=== PATIENT | female | born 1995 | race Caucasian/White ===

== ENCOUNTER → 2016-12-13 | Outpatient (CLI) | payer BC ==
[~2016-12-13] MED LIST: AMX500CIP PO; CPR500T PO; DEPO SHOT; DEPO-SHOT IM; FAMO20TA5 PO; LEVO500T69 PO; ONDA-42 SL; PREN-115 PO; SULF1TAB38 PO
--- NOTE | 2016-12-13 09:45 | Diagnostic Imaging Report ---
PROCEDURE: US Thyroid. TECHNIQUE: Multiple real-time grayscale images were obtained of the thyroid in various projections. INDICATION: Multiple thyroid nodules. FINDINGS: The right thyroid lobe is 4.6 x 1.6 x 1.5 cm. The left lobe is 4.4 x 1.2 x 1.6 cm. There is a solid 7 mm nodule in the mid to lower aspect of the left thyroid lobe. This is minimally more prominent compared to 12/12/2015. Another nodule measuring 3 mm in the inferior aspect of the left thyroid lobe and a 3 mm nodule in the mid right lobe are again noted. IMPRESSION: There is a 7 mm solid nodule in the mid to lower aspect of the left thyroid lobe which is minimally more prominent compared to 12/21/2015. Two other smaller nodules are seen. These might relate to a mild multinodular goiter. Dictated by: Dictated on workstation # [id number]
== END ==
LOC: RAD 08:07
PROVIDERS: ATTEND Nurse Practitioner Family
DX: E04.2 Nontoxic multinodular goiter (principal)
CPT/HCPCS: 76536

== ENCOUNTER → 2017-08-23 | Outpatient (CLI) | payer BC ==
--- NOTE | 2017-08-23 09:11 | Diagnostic Imaging Report ---
INDICATION: Epigastric abdominal pain TECHNIQUE: Multiple real-time mares scale sonographic images of the abdomen. CORRELATION STUDY: None FINDINGS: LIVER: Normal echotexture within the visualized portions of the liver. There is normal, hepatopedal direction of flow within the main portal vein. Liver length at 15 cm. GALLBLADDER: No shadowing gallstones or pericholecystic fluid. COMMON BILE DUCT: Obscured by overlying bowel gas, but no overt bile duct dilatation suggested. PANCREAS: Limited in visualization. The visualized portions appearing unremarkable. SPLEEN: Unremarkable. ABDOMINAL AORTA: Unremarkable. INFERIOR VENA CAVA: Limited in visualization. RIGHT KIDNEY: 9.4 cm. Unremarkable. LEFT KIDNEY: 9.2 cm. Unremarkable. OTHER: None. IMPRESSION: 1. Unremarkable-appearing abdominal ultrasound evaluation. Biliary tree however, is not well visualized, obscured by bowel gas. Dictated by: Dictated on workstation # [id number]
== END ==
LOC: RAD 08:45
PROVIDERS: ATTEND Nurse Practitioner Family
DX: R10.13 Epigastric pain (principal)
CPT/HCPCS: 76700

== ENCOUNTER 2019-06-05 10:55 | Outpatient (CLI) | payer BC ==
[~2019-06-05] VITALS: Ht 160 cm; Wt 69.9 kg
== END 2019-06-05 11:03 | disposition home or self-care (01) ==
LOC: PREOP 10:55
PROVIDERS: ATTEND Obstetrics & Gynecology
DX: Z01.818 Encounter for other preprocedural examination (principal)

== ENCOUNTER 2019-06-09 09:37 | Day surgery (SDC) | payer BC ==
[2019-06-09] VITALS (10 sets, daily range): BP systolic 94–126; BP diastolic 58–70
[~2019-06-09] VITALS: Ht 160 cm; Wt 69.9 kg
[2019-06-09 10:30] LABS: BASOPHILS % (AUTO) 1 % (0-10); EOSINOPHILS % (AUTO) 1 % (0-10); HEMATOCRIT 41 % (35-52); HEMOGLOBIN 13.3 G/DL (11.5-16.0); LYMPHOCYTES # (AUTO) 1.5 X 10^3 (1.0-4.0); LYMPHOCYTES % (AUTO) 34 % (12-44); MEAN CORPUSCULAR HEMOGLOBIN 28 PG (25-34); MEAN CORPUSCULAR HGB CONC 32 G/DL (32-36); MEAN CORPUSCULAR VOLUME 88 FL (80-99); MEAN PLATELET VOLUME 11.2 FL (7.4-10.4); MONOCYTES # (AUTO) 0.3 X 10^3 (0.0-1.0); MONOCYTES % (AUTO) 7 % (0-12); NEUTROPHILS # (AUTO) 2.6 X 10^3 (1.8-7.8); NEUTROPHILS % (AUTO) 57 % (42-75); PLATELET COUNT 177 10^3/uL (130-400); RED CELL DISTRIBUTION WIDTH 12.6 % (10.0-14.5); WHITE BLOOD COUNT 4.5 10^3/uL (4.3-11.0)
--- NOTE | 2019-06-09 10:38 | Progress Note-Pre Operative ---
Pre-Operative Progress Note H&P Reviewed The H&P was reviewed, patient examined and no changes noted. Date Seen by Provider: Jun 09, 2019 Time Seen by Provider: 10:38 Date H&P Reviewed: Jun 09, 2019 Time H&P Reviewed: 10:38 Pre-Operative Diagnosis: IUD retained WANDA CABRERA DO Jun 09, 2019 10:38
[2019-06-09] MEDS ORDERED: D5 LR IV SOLUTION 1,000 ML IV SCH (10:39)
[2019-06-09] MEDS ORDERED: ONDANSETRON 4 MG/2 ML (SDV) Z0FRAN IVP PRN ×2 (10:45→12:30)
[2019-06-09] MEDS ORDERED: KETOROLAC 30 MG/ML VIAL IVP ONE (10:45)
[2019-06-09] MEDS ORDERED: LACTATED RINGERS 1,000 ML IV PRN (10:47)
[2019-06-09] MEDS ORDERED: BUPIVACAINE 0.25% 30 ML (SENSORCAINE) VIAL ONE (10:54)
[2019-06-09] MEDS ORDERED: MIDAZOLAM 2 MG/2 ML (VERSED) VIAL ONE (11:32)
[2019-06-09] MEDS ORDERED: fentaNYL INJECTION 100 MCG/2 ML AMP ONE (11:32)
[2019-06-09] MEDS ORDERED: LIDOCAINE PF 2% 5 ML (XYLOCAINE) VIAL ONE (12:03)
[2019-06-09] MEDS ORDERED: ONDANSETRON 4 MG/2 ML (SDV) Z0FRAN ONE (12:03)
[2019-06-09] MEDS ORDERED: SEVOFLURANE (ULTANE) 15 ML INHAL SOLN ONE (12:03)
[2019-06-09] MEDS ORDERED: DEXAMETHASONE 10 MG/ML (DECADRON) 1 ML VIAL ONE (12:03)
[2019-06-09] MEDS ORDERED: proPOfol 200 MG/20 ML (DIPRIVAN) VIAL IV ONE (12:03)
[2019-06-09] MEDS ORDERED: KETOROLAC 30 MG/ML VIAL ONE (12:09)
[2019-06-09] MEDS ORDERED: HYDROmorphone 2 MG/ML VIAL (DILAUDID) IV ONE (12:30)
[2019-06-09] MEDS ORDERED: MEPERIDINE (DEMEROL) INJ 50 MG/ML IVP ONE (12:30)
[2019-06-09] MEDS ORDERED: morphine INJ 10 MG/ML 1ML (SYR OR VIAL) IVP ONE (12:30)
--- NOTE | 2019-06-09 15:00 | NUR ---
REPORTS INTERMITTENT PELVIC CRAMPY DISCOMFORT RATED 1-2 THROUGHOUT RECOVERY. TAKING PO FLUIDS WELL, ALERT, ONLY SCANT AMOUNT OF BLOODY DRAINAGE ON V-PAD. STATE SHE IS READY FOR DISMISSAL.
--- NOTE | 2019-06-09 15:30 | Anesthesia-General Post-Op ---
General Patient Condition Mental Status/LOC: Same as Preop Cardiovascular: Satisfactory Nausea/Vomiting: Absent Respiratory: Satisfactory Pain: Controlled Complications: Absent Post Op Complications Complications None Follow Up Care/Instructions Patient Instructions None needed. Anesthesia/Patient Condition Patient Condition Patient is doing well, no complaints, stable vital signs, no apparent adverse anesthesia problems. No complications reported per nursing. DAVE MORTON CRNA Jun 09, 2019 15:30
--- NOTE | 2019-06-09 18:01 | OPERATIVE REPORT ---
DATE OF SERVICE: 06/09/2019 PREOPERATIVE DIAGNOSIS: Retained IUD. POSTOPERATIVE DIAGNOSIS: Retained IUD. PROCEDURE: Hysteroscopic removal of IUD. SURGEON: Wanda Cabrera DO ANESTHESIA: General endotracheal. ESTIMATED BLOOD LOSS: Minimal. URINE OUTPUT: 50 mL, clear drained at the end of the procedure. FLUIDS: 600 mL of lactated Ringer's solution. FINDINGS: An embedded IUD at the uterine fundus with no evidence of puncture of the myometrium. SPECIMEN SENT: None. INDICATION FOR PROCEDURE: This 24-year-old female is a patient, who came in for annual well-woman visit, reported some pain with intercourse, but otherwise was asymptomatic with having periods that were very light, monthly, otherwise no complications. She was requesting IUD removal for the possibility of in the next year to two years. We attempted IUD removal in the office, but was unsuccessful and the patient became quite uncomfortable. I discussed with the patient doing this under sedation or general anesthesia. Risk of anesthesia and sedation was discussed with the patient in detail. I discussed; however, we may need to use hysteroscopic guidance in order for removal. She was okay with that. After everything was discussed, consent was obtained in the preoperative area and the patient was taken to the operating room. OPERATIVE REPORT IN DETAIL: Once in the operating room, general anesthesia was found to be adequate. She was placed in dorsal lithotomy position, prepped and draped in normal sterile fashion. A timeout was performed. Weighted speculum was inserted in the patient's vagina. A right angle retractor was used to visualize the cervix. Paracervical block was then performed at 3 and 9 o'clock positions using 0.25% Marcaine, 5 mL were injected at each site. Care was taken to aspirate before injecting. I then gently sound the uterine cavity, depth was found to be 8 cm. I then gently dilated the cervix using Mayra dilators to a maximum dilatation of approximately 8 mm. I then attempted to blindly remove the IUD using a long curved Adwoa. I was unable to do so. I then advanced a hysteroscope using normal saline as my visual medium into the uterine endometrium, at which point, I am able to identify the IUD visually. I grasped that using hysteroscopic grasper and I am able to remove it without difficulty. There was no active bleeding noted from the uterus after this was performed. All other instruments were removed from the patient's vagina. There was a small amount of bleeding noted from the cervix and made hemostatic using silver nitrate. Otherwise, the patient tolerated the procedure well and was taken to recovery area in stable condition. Lap and sponge counts were correct at the end of the procedure. Instrument count was correct as well. Job ID: [id number] DocumentID: [id number] Dictated Date: 06/09/2019 12:36:04 Nps Date: 06/09/2019 18:00:40 Dictated By: WANDA CABRERA DO
== END 2019-06-09 15:00 | disposition home or self-care (01) ==
LOC: SDC 09:37
PROVIDERS: ATTEND Obstetrics & Gynecology
DX: T83.84XA Pain due to genitourinary prosthetic devices, implants and grafts, initial encounter (principal); Z30.432 Encounter for removal of intrauterine contraceptive device; G43.909 Migraine, unspecified, not intractable, without status migrainosus; Z88.2 Allergy status to sulfonamides; Z79.899 Other long term (current) drug therapy; Z80.3 Family history of malignant neoplasm of breast; Z82.49 Family history of ischemic heart disease and other diseases of the circulatory system
CPT/HCPCS: 36415; 84703; 85025; 86850; 86900; 86901; 87081; 94664

== ENCOUNTER 2019-11-03 08:00 | Emergency (ER) | payer BC ==
[~2019-11-03] VITALS: Ht 160 cm; Wt 70.3 kg
[2019-11-03] MEDS ORDERED: LACTATED RINGERS 1,000 ML IV ONE (08:11)
[2019-11-03 08:31] LABS: BASOPHILS % (AUTO) 0 % (0-10); EOSINOPHILS # (AUTO) 0.1 10^3/uL (0.0-0.3); EOSINOPHILS % (AUTO) 1 % (0-10); HEMATOCRIT 43 % (35-52); HEMOGLOBIN 13.8 G/DL (11.5-16.0); LYMPHOCYTES # (AUTO) 1.9 X 10^3 (1.0-4.0); LYMPHOCYTES % (AUTO) 31 % (12-44); MEAN CORPUSCULAR HEMOGLOBIN 28 PG (25-34); MEAN CORPUSCULAR HGB CONC 32 G/DL (32-36); MEAN CORPUSCULAR VOLUME 87 FL (80-99); MEAN PLATELET VOLUME 11.7 FL (7.4-10.4); MONOCYTES # (AUTO) 0.4 X 10^3 (0.0-1.0); MONOCYTES % (AUTO) 6 % (0-12); NEUTROPHILS # (AUTO) 3.7 X 10^3 (1.8-7.8); NEUTROPHILS % (AUTO) 62 % (42-75); PLATELET COUNT 169 10^3/uL (130-400); RED CELL DISTRIBUTION WIDTH 13.5 % (10.0-14.5)
--- NOTE | 2019-11-03 08:35 | ED Abdominal Pain ---
General Chief Complaint: Abdominal/GI Problems Stated Complaint: LOWER ABD PAIN Source of Information: Patient History of Present Illness Date Seen by Provider: Nov 03, 2019 Time Seen by Provider: 08:04 Initial Comments PT ARRIVES VIA POV FROM HOME C/O DIFFUSE LOWER ABDOMINAL PAIN, RADIATING TO RIGHT FLANK--SUDDEN ONSET AT 0830 YESTERDAY MORNING PAIN WAXES AND WANES IN INTENSITY, BUT DOES NOT GO AWAY WHEN PAIN IS SEVERE, IT RADIATES TO RUQ AND RIGHT BREAST AND SHOULDER. NOTHING WORSENS OR IMPROVES PAIN, BUT HAS NOT TAKEN ANYTHING FOR PAIN + NAUSEA, NO VOMITING. HAD A NORMAL BM SHORTLY AFTER THE PAIN BEGAN NO FEVER DOES HAVE ALOT OF PAIN ON URINATION LMP 1 WEEK AGO. NORMAL. ON OCP'S. HAD MIRENA IUD REMOVED 4 MONTHS AGO. SEEN AT [facility] YESTERDAY AFTERNOON AROUND 1600, HAD UA DONE AND WAS REPORTEDLY "CLEAR". NO ADDITIONAL TESTS, AND NO RX GIVEN. HAS HAD AN OVARIAN CYST RUPTURE IN THE PAST, BUT THIS IS NOT THE SAME. PCP: [facility] MEDICAID ELIGIBILITY SPECIALIST: DR. CABRERA Allergies and Home Medications Allergies Coded Allergies: Sulfa (Sulfonamide Antibiotics) (Unverified Adverse Reaction, Intermediate, rash, throat swelling, 12/31/12) Home Medications No Active Prescriptions or Reported Meds Review of Systems Review of Systems Constitutional: no symptoms reported; No chills, No diaphoresis, No fever Respiratory: No Symptoms Reported Cardiovascular: No Symptoms Reported Gastrointestinal: See HPI, Abdominal Pain; Denies Constipated, Denies Diarrhea; Nausea; Denies Vomiting Genitourinary: See HPI, Flank Pain, Pain Musculoskeletal: see HPI, back pain Skin: no symptoms reported Psychiatric/Neurological: No Symptoms Reported Endocrine: No Symptoms Reported Hematologic/Lymphatic: No Symptoms Reported Past Bfccmit-Kbryvy-Paofdm Hx Past Med/Social Hx: Reviewed and Corrections made Patient Social History Alcohol Use: Occasionally Uses Recreational Drug Use: No Smoking Status: Never a Smoker Recent Foreign Travel: No Contact w/Someone Who Travel: No Recent Hopitalizations: No Immunizations Up To Date Tetanus Booster (TDap): Unknown Date of Influenza Vaccine: Jul 08, 2013 Seasonal Allergies Seasonal Allergies: No Past Medical History Surgeries: Yes (WISDOM TEETH REMOVED; X 1) Section Respiratory: No Currently Using CPAP: No Currently Using BIPAP: No Cardiac: No Neurological: Yes Headaches /Migraines Reproductive Disorders: Yes (HAD HPV VACCINE SERIES IN 2007) Female Reproductive Disorders: Ovarian Cyst Sexually Transmitted Disease: No Genitourinary: No Gastrointestinal: No Musculoskeletal: No Endocrine: No HEENT: No Cancer: No Psychosocial: No Integumentary: No Blood Disorders: No Family Medical History No Pertinent Family Hx Physical Exam Vital Signs Vital Signs - First Documented 11/03/19 08:05 Temp 36.7 Pulse 97 Resp 20 B/P (MAP) 121/58 (79) Pulse Ox 100 O2 Delivery Room Air Capillary Refill : Height/Weight/BMI Height: 5'3.00" Weight: 154lbs. 0.0oz. 69.494273sp; 27.30 BMI Method:Stated General Appearance: WD/WN, no apparent distress, other (WALKS UPRIGHT AND MOVES WITHOUT DIFFICULTY. DOES NOT APPEAR TO BE IN ANY DISCOMFORT OR DISTRESS) Respiratory: normal breath sounds, no respiratory distress, no accessory muscle use Cardiovascular: regular rate, rhythm, no murmur Gastrointestinal: normal bowel sounds, soft, no organomegaly, no pulsatile mass; No distended, No guarding, No rebound; tenderness (DIFFUSE ABDOMINAL TENDERNSS, MORE TENDER ON RIGHT, WITH MOST TENDERNESS IN RLQ ); No hernia, No mass Extremities: normal inspection, normal capillary refill Back: normal inspection, no CVA tenderness Neurologic/Psychiatric: rn cardiac II-XII nml as tested, no motor/sensory deficits, alert, normal mood/affect, oriented x 3 Skin: normal color, warm/dry; No rash Progress/Results/Core Measures Results/Orders Lab Results Laboratory Tests Test 11/03/19 08:19 11/03/19 08:24 Range/Units Urine Color YELLOW Urine Clarity CLEAR Urine pH 5.5 5-9 Urine Specific Nathrop 1.025 H 1.016-1.022 Urine Protein NEGATIVE NEGATIVE Urine Glucose (UA) NEGATIVE NEGATIVE Urine Ketones NEGATIVE NEGATIVE Urine Nitrite NEGATIVE NEGATIVE Urine Bilirubin NEGATIVE NEGATIVE Urine Urobilinogen 0.2 < = 1.0 MG/DL Urine Leukocyte Esterase TRACE H NEGATIVE Urine RBC (Auto) NEGATIVE NEGATIVE Urine RBC NONE /HPF Urine WBC 10-25 H /HPF Urine Squamous Epithelial Cells 10-25 H /HPF Urine Crystals NONE /LPF Urine Bacteria MODERATE H /HPF Urine Casts NONE /LPF Urine Mucus NEGATIVE /LPF Urine Culture Indicated YES White Blood Count 6.0 4.3-11.0 10^3/uL Red Blood Count 4.93 4.35-5.85 10^6/uL Hemoglobin 13.8 11.5-16.0 G/DL Hematocrit 43 35-52 % Mean Corpuscular Volume 87 80-99 FL Mean Corpuscular Hemoglobin 28 25-34 PG Mean Corpuscular Hemoglobin Concent 32 32-36 G/DL Red Cell Distribution Width 13.5 10.0-14.5 % Platelet Count 169 130-400 10^3/uL Mean Platelet Volume 11.7 H 7.4-10.4 FL Neutrophils (%) (Auto) 62 42-75 % Lymphocytes (%) (Auto) 31 12-44 % Monocytes (%) (Auto) 6 0-12 % Eosinophils (%) (Auto) 1 0-10 % Basophils (%) (Auto) 0 0-10 % Neutrophils # (Auto) 3.7 1.8-7.8 X 10^3 Lymphocytes # (Auto) 1.9 1.0-4.0 X 10^3 Monocytes # (Auto) 0.4 0.0-1.0 X 10^3 Eosinophils # (Auto) 0.1 0.0-0.3 10^3/uL Basophils # (Auto) 0.0 0.0-0.1 10^3/uL Sodium Level 139 135-145 MMOL/L Potassium Level 3.8 3.6-5.0 MMOL/L Chloride Level 107 98-107 MMOL/L Carbon Dioxide Level 24 21-32 MMOL/L Anion Gap 8 5-14 MMOL/L Blood Urea Nitrogen 11 7-18 MG/DL Creatinine 0.79 0.60-1.30 MG/DL Estimat Glomerular Filtration Rate > 60 BUN/Creatinine Ratio 14 Glucose Level 88 70-105 MG/DL Calcium Level 9.4 8.5-10.1 MG/DL Corrected Calcium 9.1 8.5-10.1 MG/DL Total Bilirubin 0.6 0.1-1.0 MG/DL Aspartate Amino Transf (AST/SGOT) 12 5-34 U/L Alanine Aminotransferase (ALT/SGPT) 16 0-55 U/L Alkaline Phosphatase 52 40-136 U/L Total Protein 7.4 6.4-8.2 GM/DL Albumin 4.4 3.2-4.5 GM/DL Amylase Level 53 25-125 U/L Lipase 15 8-78 U/L My Orders Orders - VANNESA CAIN DO Ua Culture If Indicated (11/03/19 08:02) Urine Bedside (11/03/19 08:02) Ed Iv/Invasive Line Start (11/03/19 08:11) Amylase (11/03/19 08:11) Cbc With Automated Diff (11/03/19 08:11) Comprehensive Metabolic Panel (11/03/19 08:11) Lipase (11/03/19 08:11) Ed Iv/Invasive Line Start (11/03/19 08:11) Lactated Ringers (Lr 1000 Ml Iv Solution (11/03/19 08:11) Urine Culture (11/03/19 08:19) Acute Abd Series (11/03/19 08:55) Ketorolac Injection (Toradol Injection) (11/03/19 08:55) Ceftriaxone For Iv Use (Rocephin For I (11/03/19 09:00) Ct Abd/Pelv W (Appendicitis) (11/03/19 08:58) Iohexol Injection (Omnipaque 350 Mg/Ml 1 (11/03/19 09:15) Received Contrast (Hold Metformin- Contr (11/03/19 09:15) Ns (Ivpb) (Sodium Chloride 0.9% Ivpb Bag (11/03/19 09:15) Medications Given in ED Current Medications Medications Dose Ordered Sig/Patricia Route Start Time Stop Time Status Last Admin Dose Admin Ceftriaxone Sodium 1000 mg/ Sterile Water 10 ml @ 200 mls/hr ONCE ONCE IV 11/03/19 09:00 11/03/19 09:02 DC 11/03/19 09:39 200 MLS/HR Iohexol 100 ml ONCE ONCE IV 11/03/19 09:15 11/03/19 09:16 DC 11/03/19 09:23 89 ML Lactated Ringer's 1,000 ml @ 0 mls/hr Q0M ONCE IV 11/03/19 08:11 11/03/19 08:12 DC 11/03/19 08:28 1,000 MLS/HR Sodium Chloride 100 ml ONCE ONCE IV 11/03/19 09:15 11/03/19 09:16 DC 11/03/19 09:23 80 ML Vital Signs/I&O 11/03/19 08:05 Temp 36.7 Pulse 97 Resp 20 B/P (MAP) 121/58 (79) Pulse Ox 100 O2 Delivery Room Air Progress Progress Note : Progress Note PAIN RELIEVED WITH TORADOL UNEVENTFUL ER STAY Departure Impression Primary Impression: Urinary tract infection Additional Impression: RUPTURED RIGHT OVARIAN CYST Disposition: HOME, SELF-CARE Condition: Improved Departure-Patient Inst. Referrals: [facility] (PCP) Primary Care Physician WANDA CABRERA DO Patient Instructions: Urinary Tract Infection, Adult (DC), Ovarian Cyst (DC) Add. Discharge Instructions: LOTS OF CLEAR LIQUIDS TYLENOL 1 GRAM / MOTRIN 800 MG 4 TIMES A DAY FOR PAIN OR FEVER [facility]-3 DAYS FOR FURTHER CARE, RETURN TO ER IF SYMPTOMS WORSEN All discharge instructions reviewed with patient and/or family. Voiced understanding. Scripts Tramadol HCl (Ultram) 50 Mg Tablet 50 MG PO Q4H PRN for PAIN-MODERATE for 3 Days, TAB Prov: VANNESA CAIN DO 11/03/19 Nitrofurantoin Monohyd/M-Cryst (Macrobid 100 mg Capsule) 100 Mg Capsule 100 MG PO BID, #20 CAP Prov: VANNESA CAIN DO 11/03/19 VANNESA CAIN DO Nov 03, 2019 08:35
[2019-11-03 08:41] LABS: BILIRUBIN,URINE NEGATIVE (NEGATIVE); CLARITY,URINE CLEAR; COLOR,URINE YELLOW; GLUCOSE, URINE (UA) NEGATIVE (NEGATIVE); KETONES,URINE NEGATIVE (NEGATIVE); LEUKOCYTE ESTERASE ,URINE TRACE (NEGATIVE); NITRITE,URINE NEGATIVE (NEGATIVE); PH,URINE 5.5 (5-9); PROTEIN,URINE NEGATIVE (NEGATIVE)
[2019-11-03 08:53] LABS: ALANINE AMINOTRANSFERASE 16 U/L (0-55); ALBUMIN 4.4 GM/DL (3.2-4.5); ALKALINE PHOSPHATASE 52 U/L (40-136); AMYLASE 53 U/L (25-125); BILIRUBIN,TOTAL 0.6 MG/DL (0.1-1.0); BUN/CREATININE RATIO 14; CALCIUM 9.4 MG/DL (8.5-10.1); CARBON DIOXIDE 24 MMOL/L (21-32); CHLORIDE 107 MMOL/L (98-107); CREATININE SERUM 0.79 MG/DL (0.60-1.30); GFR ESTIMATED > 60; GLUCOSE 88 MG/DL (70-105); LIPASE 15 U/L (8-78); POTASSIUM 3.8 MMOL/L (3.6-5.0); SODIUM 139 MMOL/L (135-145); TOTAL PROTEIN 7.4 GM/DL (6.4-8.2)
[2019-11-03 08:53] LABS: BACTERIA,URINE MODERATE /HPF
[2019-11-03] MEDS ORDERED: KETOROLAC 30 MG/ML VIAL IVP STA (08:55)
[2019-11-03] MEDS ORDERED: cefTRIAXone FOR IV USE 1,000 MG in WATER (STERILE) FOR INJECTION 10 ML IV ONE (09:00)
[2019-11-03] MEDS ORDERED: IOHEXOL 350 MG/ML 100 ML (OMNIPAQUE 350) VIAL IV ONE (09:15)
[2019-11-03] MEDS ORDERED: NS 100 ML (IVPB) BAG IV ONE (09:15)
[2019-11-03] MEDS ORDERED: HOLD METFORMIN - RECEIVED CONTRAST 20 ML VIAL IV SCH (09:15)
--- NOTE | 2019-11-03 09:31 | Diagnostic Imaging Report ---
PATIENT HISTORY: Lower abdominal pain. TECHNIQUE: Three views of the chest and abdomen were obtained. COMPARISON: 07/18/2014. FINDINGS: The lung volumes are normal. No focal consolidation is seen. No large pleural effusion or pneumothorax is seen. The cardiomediastinal silhouette is normal in size and contour. No acute osseous abnormality is seen. No evidence of bowel obstruction or large collections of free intraperitoneal air. Moderate amount of stool is seen in the colon. Phleboliths are noted in the pelvis. No acute osseous abnormalities are seen in the abdomen and pelvis. IMPRESSION: 1. No acute pleuroparenchymal process. 2. No evidence of bowel obstruction or large collections of free intraperitoneal air. 3. Moderate amount of stool in the colon, which can be seen with constipation. Dictated by: Dictated on workstation # [id number]
--- NOTE | 2019-11-03 09:53 | Diagnostic Imaging Report ---
PROCEDURE: CT abdomen and pelvis with contrast, rule out appendicitis. TECHNIQUE: Multiple contiguous axial images were obtained through the abdomen and pelvis after the administration of intravenous contrast. All CT scans use one or more of the following dose optimizing techniques: automated exposure control, MA and/or KvP adjustment based on a patient size and exam type, or iterative reconstruction. INDICATION: Right lower quadrant pain, nausea FINDINGS: The air-containing appendix well visualized and normal. There is a 6 mm nonobstructing left renal mid pole calculus. No radiodense ureteral stone. No hydroureteronephrosis. The urinary bladder unremarkable. There is pelvic free fluid in the cul-de-sac as well as a likely complex right adnexal cystic mass measuring 3.5 x 2.7 cm. Pelvic free fluid itself is somewhat dense and this may reflect a partially ruptured hemorrhagic cyst. Pelvic ultrasound recommended. The left adnexa unremarkable. The urinary bladder unremarkable. There is no bowel obstruction. Liver, spleen, adrenals, pancreas and gallbladder all negative. The aortoiliac and mesenteric vessels patent and nonaneurysmal. IMPRESSION: Right adnexal cyst 3.5 cm show some heterogeneity of its density and there is likely small-volume complex pelvic free fluid at the cul-de-sac. Findings raise the question of a partially ruptured hemorrhagic cyst without contrast extravasation. Consider a pelvic ultrasound as further evaluation. Nonobstructing nephrolithiasis with normal appendix. Dictated by: Dictated on workstation # [id number]
[2019-11-03] MEDS ORDERED: TRAM-42 PO (10:05)
[2019-11-03] MEDS ORDERED: NITR-65 PO (10:05)
[2019-11-03 10:38] VITALS: BP 118/76
--- OUTSIDE RECORDS SUMMARY | 2019-11-11 05:19 | XMS REPORT ---
Author Author Kiah Rodriguez Organization [facility] Address [address] [place] [address] Care Team Providers Care [employer] Specialist Supervisor Name Role Phone GRACE Rodriguez Unavailable PROBLEMS Type Condition ICD9-CM Code [id number] Code Onset Dates Condition S tatus SNOMED Code Problem Multiple thyroid nodules E04.2 Activ e 205900092 Problem Viral gastritis K29.70 Active 4313 79520 Problem Thyromegaly E04.9 Active 7263906 Problem History of thyroid cyst Z86.39 Active 902239196 Problem Throat pain R07.0 Active [id number] 3 ALLERGIES No Information ENCOUNTERS Encounter Location Date Diagnosis [facility] [address] [id number] [place] [phone] Sep, Viral upper respiratory trac t infection J06.9 [facility] [address] [id number] [address] [place] [id number] Nov, Viral gastritis K29.70 and F ever R50.9 [facility] [address] [id number] [address] [place] [id number] Jul, Sore throat J02.9 and Acute suppurative otitis media of right ear without spontaneous rupture of tympanic membrane, recurrence not specified H66.001 [facility] [address] [facility] [id number] [address] [place] [phone] Jul, [facility] [address] [id number] [place] [address] Jun, [facility] [address] [facility] [id number] [address] [place] [phone] 08 Jun, 2018 Urinary frequency R35.0 ; Ac migdalia cystitis without hematuria N30.00 and Acute recurrent maxillary sinusitis J01.01 [place] [address] [address] 27 May, 2018 Encounter for immunization Z23 [facility] [address] [place] [phone] May, Acute maxillary sinusitis, r ecurrence not specified J01.00 and Bronchiolitis J21.9 [facility] [address] [address] January, UTI symptoms R39.9 and Dysur ia R30.0 [facility] [address] [address] Nov, Acute non-recurrent frontal sinusitis J01.10 [facility] [address] [address] Sep, Sore throat J02.9 and Cellul itis of head except face L03.811 [place] [address] [address] Jul, Epigastric pain R10.13 [facility] [address] [address] Jul, Epigastric pain R10.13 [place] [address] [address] 24 Nov, 2016 Multiple thyroid nodules E04.2 ; Thyrome mendez E04.9 and History of thyroid cyst Z86.39 [facility] [address] [address] 14 Nov, 2016 Sore throat J02.9 ; Fever R5 0.9 and Influenza A J10.[address] [address] 07 Nov, 2016 Multiple thyroid nodules E04.2 and Inter mittent headache R51 [address] [address] 30 Feb, 2016 Insect bites, initial encounter W57.XXXA [facility] [address] [address] 13 Dec, 2016 Throat pain R07.0 and Multiple thyroid n odules E04.2 [facility] [address] [address] 30 Nov, 2016 History of thyroid cyst Z86.39 and Thyro megaly E04.9 [facility] [address] [address] 23 Nov, 2015 Thyromegaly E04.9 and History of thyroid cyst Z86.39 [facility] [address] [address] Dec, [facility] [address] [address] Dec, [facility] [address] [address] Oct, [facility] [address] [address] Oct, [facility] [address] [address] Aug, [facility] [address] [address] Aug, [facility] [address] [address] Aug, [facility] [address] [address] Aug, [facility] [address] [address] Aug, [facility] [address] [address] Aug, [facility] [address] [address] Jul, [facility] [address] [address] Jul, [facility] [address] [id number] [place] [address] Jul, [facility] [address] [id number] [place] [address] Jul, [facility] [address] [id number] [place] [address] May, [facility] [id number] [place] [address] May, [facility] [id number] [place] [address] Feb, [facility] [id number] [place] [address] Feb, [facility] [id number] [place] [address] January, [facility] [id number] [place] [address] January, [facility] [address] [id number] [place] [address] Dec, [facility] [id number] [place] [address] Dec, IMMUNIZATIONS No Known Immunizations SOCIAL HISTORY Never Assessed REASON FOR VISIT PLAN OF CARE VITAL SIGNS Height 63 in 2014-02-11 Weight 139.25 lbs 2014-02-11 Temperature 97.5 degrees Fahrenheit 2014-02-11 Heart Rate 72 bpm 2014-02-11 Respiratory Rate 16 2014-02-11 Blood pressure systolic 104 mmHg 2014-02-11 Blood pressure diastolic 70 mmHg 2014-02-11 MEDICATIONS No Known Medications RESULTS No Results PROCEDURES No Known procedures INSTRUCTIONS MEDICATIONS ADMINISTERED No Known Medications MEDICAL (GENERAL) HISTORY Type Description Date Medical History Enlarged Thryoid with cysts Surgical History 2013 Hospitalization History Allergy Outbreak to Sulfa 2009
--- OUTSIDE RECORDS SUMMARY | 2019-11-11 05:19 | XMS REPORT ---
Author Author Kiah HITCHCOCK Organization [facility] Address [address] [place] [address] Care Team Providers Care Ticket Agent Name Role Phone LIN HITCHCOCK Unavailable PROBLEMS Type Condition ICD9-CM Code [id number] Code Onset Dates Condition S tatus SNOMED Code Problem Multiple thyroid nodules E04.2 Activ e 571321652 Problem Viral gastritis K29.70 Active 5883 39040 Problem Thyromegaly E04.9 Active 6172733 Problem History of thyroid cyst Z86.39 Active 333966207 Problem Throat pain R07.0 Active 17269071 3 ALLERGIES Substance Reaction Event Type Date Status Sulfamethoxazole-Trimethoprim Unknown Drug Allergy Nov, 201 9 Active ENCOUNTERS Encounter Location Date Diagnosis [facility] [id number] [place] [address] Nov, Viral gastritis K29.70 and F ever R50.9 [facility] [id number] [place] [address] Jul, Sore throat J02.9 and Acute suppurative otitis media of right ear without spontaneous rupture of tympanic membrane, recurrence not specified H66.001 [facility] [id number] [place] [address] Jul, [facility] [address] [id number] [place] [address] Jun, [facility] [address] [address] Jun, Urinary frequency R35.0 ; Ac migdalia cystitis without hematuria N30.00 and Acute recurrent maxillary sinusitis J01.01 [facility] [id number] [place] [address] May, Encounter for immunization Z23 [facility] [address] [address] May, Acute maxillary sinusitis, r ecurrence not specified J01.00 and Bronchiolitis J21.9 [facility] [address] [address] January, UTI symptoms R39.9 and Dysur ia R30.0 [facility] [address] [address] Nov, Acute non-recurrent frontal sinusitis J01.10 [facility] [address] [place] [address] Sep, Sore throat J02.9 and Cellul itis of head except face L03.[address] [address] Jul, Epigastric pain R10.13 [facility] [address] [place] [address] Jul, Epigastric pain R10.[address] [address] 24 Nov, 2016 Multiple thyroid nodules E04.2 ; Thyrome mendez E04.9 and History of thyroid cyst Z86.39 [facility] [address] [address] 14 Nov, 2016 Sore throat J02.9 ; Fever R5 0.9 and Influenza A J10.[address] [address] 07 Nov, 2016 Multiple thyroid nodules E04.2 and Inter mittent headache R51 [address] [address] 30 Feb, 2016 Insect bites, initial encounter W57.XXXA [address] [address] 13 Dec, 2016 Throat pain R07.0 and Multiple thyroid n odules E04.2 [facility] [address] [address] 30 Nov, 2016 History of thyroid cyst Z86.39 and Thyro megaly E04.9 [facility] [address] [address] Nov, Thyromegaly E04.9 and History of thyroid cyst Z86.39 [facility] [address] [address] 14 Dec, 2014 [facility] [address] [address] Dec, [facility] [address] [address] Oct, [facility] [address] [address] Oct, [facility] [address] [address] Aug, [facility] [address] [address] Aug, [facility] [address] [address] Aug, [facility] [address] [address] Aug, [facility] [address] [address] Aug, [facility] [address] [address] Aug, [facility] [address] [address] Jul, [facility] [address] [address] Jul, [facility] [address] [address] Jul, [facility] [id number] [place] [address] Jul, [facility] [id number] [place] [address] May, [facility] [id number] [place] [address] May, [facility] [address] [address] Feb, [facility] [address] [address] Feb, [facility] [address] [address] January, [facility] [address] [address] January, [facility] [address] [address] Dec, [facility] [address] [id number] [place] [address] Dec, IMMUNIZATIONS No Known Immunizations SOCIAL HISTORY Never Assessed REASON FOR VISIT flu like symptoms: Puking, Diarrhea, fever, body aches, symptoms started two day s ago. Patient reports they have not taken any medications over the counter.Antoine Canales MA PLAN OF CARE Activity Details Follow Up prn. if not improving with P CP or reg follow up Reason: VITAL SIGNS Height 63 in 2018-12-10 Weight 146.6 lbs 2018-12-10 Temperature 100.0 degrees Fahrenheit 2018-12-10 Heart Rate 138 bpm 2018-12-10 Respiratory Rate 20 2018-12-10 BMI 25.97 kg/m2 2018-12-10 Blood pressure systolic 122 mmHg 2018-12-10 Blood pressure diastolic 61 mmHg 2018-12-10 MEDICATIONS Medication Instructions Dosage Frequency Start Date End Date Duration S tatus Excedrin Extra Strength 250-250-65 MG Orally Once a day 2 tablets 24h 30 day(s) Active Mirena 20 MCG/24HR Activ e Mucinex 600 MG Orally every 12 hrs 1 tablet as needed 12h Unknown RESULTS Name Result Date Reference Range INFLUENZA A & B (IN HOUSE) INFLUENZA A negative INFLUENZA B negative Control + Lot # [id number] Exp date 2021-07-09 PROCEDURES Procedure Date Ordered Result Body Site INFLUENZA ASSAY W/OPTIC December 10, 2018 INSTRUCTIONS MEDICATIONS ADMINISTERED No Known Medications MEDICAL (GENERAL) HISTORY Type Description Date Medical History Enlarged Thryoid with cysts Surgical History 2012 Hospitalization History Allergy Outbreak to Sulfa 2010
--- OUTSIDE RECORDS SUMMARY | 2019-11-11 05:20 | XMS REPORT | Continuity of Care Document ---
Author Organization Unknown Address Unknown Phone Unavailable Allergies Active Description Code Type Severity Reaction Onset Reported/Identified Relationship to Patient Clinical Status Yes Sulfa (Sulfonamide Antibiotics) [id number] 0491 Drug Allergy Moderate rash, throat sw 12/31/2012 Medications There is no data. Problems Date Dx Coded Attending Type Code Diagnosis Diagnosed By 06/13/2011 ROGERS CHAPARRO DO V25.9 CONTRACEPTIVE MANAGEMENT, UNSPECIFIED 06/13/2011 GRACE DALE APRN V2 5.9 CONTRACEPTIVE MANAGEMENT, UNSPECIFIED 06/13/2011 ROGERS CHAPARRO DO V25.9 CONTRACEPTIVE MANAGEMENT, UNSPECIFIED 06/13/2011 ROGERS CHAPARRO DO V25.9 CONTRACEPTIVE MANAGEMENT, UNSPECIFIED 06/13/2011 LUCRECIA HOFFMAN APRN V25.9 CONTRACEPTIVE MANAGEMENT, UNSPECIFIED 06/13/2011 LUCRECIA HOFFMAN APRN V25.9 CONTRACEPTIVE MANAGEMENT, UNSPECIFIED 06/13/2011 ROGERS CHAPARRO DO V25.9 CONTRACEPTIVE MANAGEMENT, UNSPECIFIED 12/31/2012 Ot 648.93 OTH CURR COND- ANTEPARTUM 12/31/2012 Ot 789.09 ABD OMINAL PAIN, OTHER SPECIFIED SITE 07/08/2013 DARNELL BRUNER, DIXON Irwin Ot 643.23 LATE VOMIT PREG-ANTEPART 07/08/2013 DIXON PATRICK MD Ot V04.81 ND FOR PROPHYLACTIC VACCIN AND INOCULATI 07/24/2013 ROGERS CHAPARRO DO Ot 079.99 VIRAL INFECTION NOS 07/24/2013 ROGERS CHAPARRO DO Ot 647.63 OTH VIRAL DIS-ANTEPARTUM 02/11/2014 GRACE DALE APRN 676.24 ENGORGEMENT OF BREASTS ASSOCIATED WITH CHIL DBIRTH 02/11/2014 ROGERS CHAPARRO DO 676.24 ENGORGEMENT OF BREASTS ASSOCIATED WITH CHILDBIRTH 02/11/2014 ROGERS CHAPARRO DO 676.24 ENGORGEMENT OF BREASTS ASSOCIATED WITH CHILDBIRTH 02/11/2014 YASMIN CASE BRIEFER, LUCRECIA R 676.24 ENGORGEMENT OF BREASTS ASSOCIATED WITH CHIL DBIRTH 02/11/2014 CHERRY HOFFMAN APRNINA R 676.24 ENGORGEMENT OF BREASTS ASSOCIATED WITH CHIL DBIRTH 02/11/2014 KRYSTA ARROYO ROGERS Yunier 676.24 ENGORGEMENT OF BREASTS ASSOCIATED WITH CHILDBIRTH 07/18/2014 ANT ARROYO VANNESA Yunier Ot 300.01 PANIC DISORDER WITHOUT AGORAPHOBIA 07/18/2014 ANT ARROYO VANNESA Yunier Ot 786.50 CHEST PAIN NOS 07/29/2014 YASMIN FOLEYN, LUCRECIA R 784.0 HEADACHE 07/29/2014 YASMIN MIJARES, LUCRECIA R 784.0 HEADACHE 07/29/2014 KRYSTA ARROYO ROGERS K 784.0 HEADACHE 09/06/2014 JENN BRUNER, TAMEKA Carter Ot 787.01 NAUSEA WITH VOMITING 09/06/2014 JENN BRUNER, TAMEKA Carter Ot 789.02 ABDOMINAL PAIN, LEFT UPPER QUADRANT 10/12/2014 Ot 240.9 10/12/2014 Ot 780.79 10/12/2014 Ot 784.0 10/12/2014 Ot 241.0 10/12/2014 Ot 640.03 10/12/2014 Ot 640.03 10/19/2014 Ot 240.9 10/19/2014 Ot 780.79 10/19/2014 Ot 784.0 10/19/2014 Ot 241.0 10/19/2014 Ot 640.03 07/30/2015 Ot 240.9 07/30/2015 Ot 780.79 07/30/2015 Ot 784.0 07/30/2015 Ot 241.0 07/30/2015 Ot 640.03 08/11/2015 DONNYEDMUNDO ARROYO WANDA Nadege Ot T83.39XA 09/10/2015 DEBORAH ARROYO WANDA Light Ot T83.39XA 12/10/2015 Ot 240.9 12/10/2015 Ot 780.79 12/10/2015 Ot 784.0 12/10/2015 Ot 241.0 12/10/2015 Ot 640.03 12/10/2015 DONNYEDMUNDO WANDA Nadege Ot T83.39XA 12/20/2015 Ot 240.9 12/20/2015 Ot 780.79 12/20/2015 Ot 784.0 12/20/2015 Ot 241.0 12/20/2015 Ot 640.03 12/20/2015 WANDA CABRERA DO Ot T83.39XA 12/30/2015 Ot 240.9 12/30/2015 Ot 780.79 12/30/2015 Ot 784.0 12/30/2015 Ot 241.0 12/30/2015 Ot 640.03 12/30/2015 WANDA CABRERA DO Ot T83.39XA 12/30/2015 MADL, BLADIMIR L FOURDRINIER OPERATOR Ot E04 .9 12/30/2015 MADL, BLADIMIR L FOURDRINIER OPERATOR Ot Z86.39 12/30/2015 MADL, BLADIMIR L FOURDRINIER OPERATOR Ot E04 .9 12/30/2015 MADL, BLADIMIR L FOURDRINIER OPERATOR Ot Z86.39 12/30/2015 MADL, BLADIMIR L FOURDRINIER OPERATOR Ot E04 .9 12/30/2015 MADL, BLADIMIR L FOURDRINIER OPERATOR Ot Z86.39 01/05/2016 MADL, BLADIMIR L FOURDRINIER OPERATOR Ot E04 .9 01/05/2016 MADL, BLADIMIR L FOURDRINIER OPERATOR Ot Z86.39 01/12/2016 MADL, BLADIMIR L FOURDRINIER OPERATOR Ot E04 .9 NONTOXIC GOITER, UNSPECIFIED 01/12/2016 MADL, BLADIMIR L FOURDRINIER OPERATOR Ot Z86.39 PERSONAL HISTORY OF ENDO, NUTRITIONAL AN 06/27/2016 Ot 240.9 GOIT ER NOS 06/27/2016 Ot 780.79 OTH MALAISE FATIGUE 06/27/2016 Ot 784.0 HEAD ACHE 06/27/2016 Ot 241.0 NONT OX UNINODULAR GOITER 06/27/2016 Ot 640.03 THR EATEN ABORT- ANTEPART 06/27/2016 WANDA CABRERA DO Ot T83.39XA MECH COMPL OF INTRAUTERINE CONTRACEPTIVE 06/27/2016 MADL, BLADIMIR L FOURDRINIER OPERATOR Ot E04 .9 NONTOXIC GOITER, UNSPECIFIED 06/27/2016 MADL, BLADIMIR L FOURDRINIER OPERATOR Ot Z86.39 PERSONAL HISTORY OF ENDO, NUTRITIONAL AN 06/27/2016 MADL, BLADIMIR L FOURDRINIER OPERATOR Ot E04 .9 NONTOXIC GOITER, UNSPECIFIED 06/27/2016 MADL, BLADIMIR L FOURDRINIER OPERATOR Ot Z86.39 PERSONAL HISTORY OF ENDO, NUTRITIONAL AN 12/26/2016 MADL, BLADIMIR L FOURDRINIER OPERATOR Ot E04 .2 NONTOXIC MULTINODULAR GOITER 08/24/2017 MADL, BALDIMIR L FOURDRINIER OPERATOR Ot R10.13 EPIGASTRIC PAIN 09/07/2017 MADL, BLADIMIR L FOURDRINIER OPERATOR Ot R10.13 EPIGASTRIC PAIN 02/01/2018 Ot 241.0 NONT OX UNINODULAR GOITER 02/01/2018 Ot 640.03 THR EATEN ABORT- ANTEPART 02/01/2018 [facility] Ot T83.39XA [facility] COMPL OF INTRAUTERINE CONTRACEPTIVE 02/01/2018 MADL, BLADIMIR L FOURDRINIER OPERATOR Ot E04 .9 NONTOXIC GOITER, UNSPECIFIED 02/01/2018 MADL, BLADIMIR L FOURDRINIER OPERATOR Ot Z86.39 PERSONAL HISTORY OF ENDO, NUTRITIONAL AN 02/01/2018 MADL, BLADIMIR L FOURDRINIER OPERATOR Ot E04 .9 NONTOXIC GOITER, UNSPECIFIED 02/01/2018 MADL, BLADIMIR L FOURDRINIER OPERATOR Ot Z86.39 PERSONAL HISTORY OF ENDO, NUTRITIONAL AN 02/01/2018 MADL, BLADIMIR L FOURDRINIER OPERATOR Ot E04 .2 NONTOXIC MULTINODULAR GOITER 02/01/2018 MADL, BLADIMIR L FOURDRINIER OPERATOR Ot R10.13 EPIGASTRIC PAIN 2018 Ot 241.0 NONT OX UNINODULAR GOITER 2018 Ot 640.03 THR EATEN ABORT- ANTEPART 2018 WANDA CABRERA DO Ot T83.39XA [facility] COMPL OF INTRAUTERINE CONTRACEPTIVE 2018 MADL, BLADIMIR L FOURDRINIER OPERATOR Ot E04 .9 NONTOXIC GOITER, UNSPECIFIED 2018 MADL, BLADIMIR L FOURDRINIER OPERATOR Ot Z86.39 PERSONAL HISTORY OF ENDO, NUTRITIONAL AN 2018 MADL, BLADIMIR L FOURDRINIER OPERATOR Ot E04 .9 NONTOXIC GOITER, UNSPECIFIED 2018 MADL, BLADIMIR L FOURDRINIER OPERATOR Ot Z86.39 PERSONAL HISTORY OF ENDO, NUTRITIONAL AN 2018 MADL, BLADIMIR L FOURDRINIER OPERATOR Ot E04 .2 NONTOXIC MULTINODULAR GOITER 2018 MADL, BLADIMIR L FOURDRINIER OPERATOR Ot R10.13 EPIGASTRIC PAIN 07/09/2018 FENECH DO, WANDA S Ot T83.39XA [facility] COMPL OF INTRAUTERINE CONTRACEPTIVE 07/09/2018 MADL, BLADIMIR L FOURDRINIER OPERATOR Ot E04 .9 NONTOXIC GOITER, UNSPECIFIED 07/09/2018 MADL, BLADIMIR L FOURDRINIER OPERATOR Ot Z86.39 PERSONAL HISTORY OF ENDO, NUTRITIONAL AN 07/09/2018 MADL, BLADIMIR L FOURDRINIER OPERATOR Ot E04 .9 NONTOXIC GOITER, UNSPECIFIED 07/09/2018 MADL, BLADIMIR L FOURDRINIER OPERATOR Ot Z86.39 PERSONAL HISTORY OF ENDO, NUTRITIONAL AN 07/09/2018 MADL, BLADIMIR L FOURDRINIER OPERATOR Ot E04 .2 NONTOXIC MULTINODULAR GOITER 07/09/2018 MADL, BLADIMIR L FOURDRINIER OPERATOR Ot R10.13 EPIGASTRIC PAIN 01/24/2019 FENECH DO, WANDA S Ot T83.39XA [facility] COMPL OF INTRAUTERINE CONTRACEPTIVE 01/24/2019 MADL, BLADIMIR L FOURDRINIER OPERATOR Ot E04 .9 NONTOXIC GOITER, UNSPECIFIED 01/24/2019 MADL, BLADIMIR L FOURDRINIER OPERATOR Ot Z86.39 PERSONAL HISTORY OF ENDO, NUTRITIONAL AN 01/24/2019 MADL, BLADIMIR L FOURDRINIER OPERATOR Ot E04 .9 NONTOXIC GOITER, UNSPECIFIED 01/24/2019 MADL, BLADIMIR L FOURDRINIER OPERATOR Ot Z86.39 PERSONAL HISTORY OF ENDO, NUTRITIONAL AN 01/24/2019 MADL, BLADIMIR L FOURDRINIER OPERATOR Ot E04 .2 NONTOXIC MULTINODULAR GOITER 01/24/2019 MADL, BLADIMIR L FOURDRINIER OPERATOR Ot R10.13 EPIGASTRIC PAIN 03/18/2019 FENECH DO, WANDA S Ot T83.39XA [facility] COMPL OF INTRAUTERINE CONTRACEPTIVE 03/18/2019 MADL, BLADIMIR L FOURDRINIER OPERATOR Ot E04 .9 NONTOXIC GOITER, UNSPECIFIED 03/18/2019 MADL, BLADIMIR L FOURDRINIER OPERATOR Ot Z86.39 PERSONAL HISTORY OF ENDO, NUTRITIONAL AN 03/18/2019 MADL, BLADIMIR L FOURDRINIER OPERATOR Ot E04 .9 NONTOXIC GOITER, UNSPECIFIED 03/18/2019 MADL, BLADIMIR L FOURDRINIER OPERATOR Ot Z86.39 PERSONAL HISTORY OF ENDO, NUTRITIONAL AN 03/18/2019 BLADIMIR KAY FOURDRINIER OPERATOR Ot E04 .2 NONTOXIC MULTINODULAR GOITER 03/18/2019 LIAMBLADIMIR Johnson FOURDRINIER OPERATOR Ot R10.13 EPIGASTRIC PAIN 06/05/2019 WANDA CABRERA DO Ot Z01.818 ENCOUNTER FOR OTHER PREPROCEDURAL EXAMIN 06/09/2019 WANDA CABRERA DO Ot G43.909 MIGRAINE, UNSP, NOT INTRACTABLE, WITHOUT 06/09/2019 DONNYECH WANDA ARROYO Ot T83.84XA PAIN DUE TO GENITOURINARY PROSTH DEV/GRF 06/09/2019 WANDA CABRERA DO Ot Z30.432 ENCOUNTER FOR REMOVAL OF INTRAUTERINE CO 06/09/2019 WANDA CABRERA DO Ot Z79.899 OTHER [facility] (CURRENT) DRUG THERAPY 06/09/2019 WANDA CABRERA DO Ot Z80.3 FAMILY HISTORY OF MALIGNANT NEOPLASM OF 06/09/2019 WANDA CABRERA DO Ot Z82.49 FAMILY HX OF ISCHEM HEART DIS AND OTH DI 06/09/2019 WANDA CABRERA DO Ot Z88.2 ALLERGY STATUS TO SULFONAMIDES STATUS 06/10/2019 WANDA CABRERA DO Ot Z01.818 ENCOUNTER FOR OTHER PREPROCEDURAL EXAMIN 06/12/2019 WANDA CABRERA DO Ot G43.909 MIGRAINE, UNSP, NOT INTRACTABLE, WITHOUT 06/12/2019 DONNYECH WANDA ARROYO Ot T83.84XA PAIN DUE TO GENITOURINARY PROSTH DEV/GRF 06/12/2019 WANDA CABRERA DO Ot Z30.432 ENCOUNTER FOR REMOVAL OF INTRAUTERINE CO 06/12/2019 WANDA CABRERA DO Ot 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 06/12/2019 WANDA CABRERA DO S Ot Z80.3 FAMILY HISTORY OF MALIGNANT NEOPLASM OF 06/12/2019 WANDA CABRERA DO S Ot Z82.49 FAMILY HX OF ISCHEM HEART DIS AND OTH DI 06/12/2019 WANDA CABRERA DO S Ot Z88.2 ALLERGY STATUS TO SULFONAMIDES STATUS 10/20/2019 WANDA CABRERA DO Ot T83.39XA MECH COMPL OF INTRAUTERINE CONTRACEPTIVE 10/20/2019 LIAMAlexBLADIMIR Alex FOURDRINIER OPERATOR Ot E04 .9 NONTOXIC GOITER, UNSPECIFIED 10/20/2019 BLADIMIR KAY FOURDRINIER OPERATOR Ot Z86.39 PERSONAL HISTORY OF ENDO, NUTRITIONAL AN 10/20/2019 MADL, BLADIMIR Johnson FOURDRINIER OPERATOR Ot E04 .9 NONTOXIC GOITER, UNSPECIFIED 10/20/2019 MADL, BLADIMIR Johnson FOURDRINIER OPERATOR Ot Z86.39 PERSONAL HISTORY OF ENDO, NUTRITIONAL AN 10/20/2019 MADL, BLADIMIR Johnson FOURDRINIER OPERATOR Ot E04 .2 NONTOXIC MULTINODULAR GOITER 10/20/2019 MADL, BLADIMIR Johnson FOURDRINIER OPERATOR Ot R10.13 EPIGASTRIC PAIN Procedures Code Description [place] [address] THER APUTIC INJ SQ/IM 12/25/2013 J1050 DEPO PROVERA 12/25/2013 33519 PREG KEMI TEST, URINE (IN- HOUSE) 12/25/2013 12674 PREG KEMI TEST, URINE (IN- HOUSE) 03/16/2014 J1050 DEPO PROVERA 03/16/2014 15242 THER APUTIC INJ SQ/IM 03/16/2014 J1050 DEPO PROVERA 06/03/2014 09744 PREG KEMI TEST, URINE (IN- HOUSE) 06/03/2014 85701 THER APUTIC INJ SQ/IM 06/03/2014 63116 ROUT INE VENIPUNCTURE 08/19/2014 74988 CMP 08/19/2014 95926 LIPI D PANEL 08/19/2014 11896 TSH 08/19/2014 05335 CBC 08/19/2014 94761 THER APUTIC INJ SQ/IM 09/01/2014 J1050 DEPO PROVERA 09/01/2014 63563 PREG KEMI TEST, URINE (IN- HOUSE) 09/01/2014 Results Test Result Range CULTURE, URINE - 02/21/18 14:20 CULTURE, URINE, ROUTINE SEE NOTE NRG CULTURE, URINE - 07/01/18 09:17 CULTURE, URINE, ROUTINE SEE NOTE NRG Methicillin resistant Staphylococcus aur eus (MRSA) screening culture - 06/09/19 09:55 Methicillin resistant Staphylococcus aureus (MRSA) scr eening culture NEG NRG Complete blood count (CBC) with automate d white blood cell (WBC) differential - 06/09/19 10:21 Blood leukocytes automated count (number/volume) 4.5 10*3/uL 4.3-11.0 Blood erythrocytes automated count (number/volume) 4.70 10*6/uL 4.35-5.85 Venous blood hemoglobin measurement (mass/volume) 13.3 g/dL 11.5-16.0 Blood hematocrit (volume fraction) 41 % 35-52 Automated erythrocyte mean corpuscular volume 88 [ foz_us] 80-99 Automated erythrocyte mean corpuscular h emoglobin (mass per erythrocyte) 28 pg 25-34 Automated erythrocyte mean corpuscular h emoglobin concentration measurement (mass/volume) 32 g/dL 32-36 Automated erythrocyte distribution width ratio 12. 6 % 10.0- 14.5 Automated blood platelet count (count/volume) 177 10*3/uL 130-400 Automated blood platelet mean volume measurement 11.2 [foz_us] 7.4-10.4 Automated blood neutrophils/100 leukocytes 57 % 42-75 Automated blood lymphocytes/100 leukocytes 34 % 12-44 Blood monocytes/100 leukocytes 7 % 0-12 Automated blood eosinophils/100 leukocytes 1 % 0-10 Automated blood basophils/100 leukocytes 1 % 0-10 Blood neutrophils automated count (number/volume) 2.6 10*3 1.8-7.8 Blood lymphocytes automated count (number/volume) 1.5 10*3 1.0-4.0 Blood monocytes automated count (number/volume) 0. 3 10*3 0.0-1.0 Automated eosinophil count 0.0 10*3/uL 0 .0-0.3 Automated blood basophil count (count/volume) 0.0 10*3/uL 0.0-0.1 Blood type T Indirect antibody screen pa estephania - 06/09/19 10:21 WRISTBAND NUMBER [id number] NRG ABO+Rh group OP NRG Blood group antibody screen NEGATIVE NR G Complete urinalysis with reflex to cultu re - 11/03/19 08:19 Urine color determination YELLOW NRG Urine clarity determination CLEAR NR G Urine pH measurement by test strip 5.5 5-9 Specific gravity of urine by test strip 1.025 1.016-1.022 Urine protein assay by test strip, semi-quantitative NEGATIVE NEGATIVE Urine glucose detection by automated test strip NE GATIVE NEGATIVE Erythrocytes detection in urine sediment by light micr oscopy NEGATIVE NEGATIVE Urine ketones detection by automated test strip NE GATIVE NEGATIVE Urine nitrite detection by test strip NEGATIVE NEGATIVE Urine total bilirubin detection by test strip NEGA TIVE NEGATIVE Urine urobilinogen measurement by automated test strip (mass/volume) 0.2 mg/dL < = 1.0 Urine leukocyte esterase detection by dipstick TRA CE NEGATIVE Automated urine sediment erythrocyte cou nt by microscopy (number/high power field) NONE NRG Automated urine sediment leukocyte count by microscopy (number/high power field) [HPF] NRG Bacteria detection in urine sediment by light microsco py MODERATE NRG Squamous epithelial cells detection in u rine sediment by light microscopy 10-25 NRG Crystals detection in urine sediment by light microsco py NONE NRG Casts detection in urine sediment by light microscopy NONE NRG Mucus detection in urine sediment by light microscopy NEGATIVE NRG Complete urinalysis with reflex to culture YES NRG Bacterial urine culture - 11/03/19 08:19 Bacterial urine culture [id number] NRG COLONY COUNT >100,000/ML NRG FTX;REPORTABLE SUSCEPTIBILITIES REPORTED 11-06-,1 038 NRG FREE TEXT ENTRY 4 RML CONFIRMED ID 11/04 15:05 NRG Dirithromycin susceptibility test by dis k diffusion - 11/03/19 08:19 Gentamicin susceptibility test by minimum inhibitory c oncentration <= NRG Trimethoprim/sulfamethoxazole susceptibi lity test by minimum inhibitoryconcentration > NRG Levofloxacin susceptibility test by minimum inhibitory concentration <= NRG Ampicillin susceptibility test by minimum inhibitory c oncentration > NRG Cefazolin susceptibility test by minimum inhibitory co ncentration 16 NRG Ceftriaxone susceptibility test by minimum inhibitory concentration <= NRG Ciprofloxacin susceptibility test by minimum inhibitor y concentration 2 NRG Meropenem susceptibility test by minimum inhibitory co ncentration <= NRG Nitrofurantoin susceptibility test by mi nimum inhibitory concentration <= NRG Amoxicillin and clavulanate potassium susc ANA M = NRG Dirithromycin susceptibility test by dis k diffusion - 11/03/19 08:19 Gentamicin susceptibility test by minimum inhibitory c oncentration <= NRG Trimethoprim/sulfamethoxazole susceptibi lity test by minimum inhibitoryconcentration <= NRG Levofloxacin susceptibility test by minimum inhibitory concentration 2 NRG Ampicillin susceptibility test by minimum inhibitory c oncentration > NRG Cefazolin susceptibility test by minimum inhibitory co ncentration 8 NRG Ceftriaxone susceptibility test by minimum inhibitory concentration <= NRG Ciprofloxacin susceptibility test by minimum inhibitor y concentration 2 NRG Meropenem susceptibility test by minimum inhibitory co ncentration <= NRG Nitrofurantoin susceptibility test by mi nimum inhibitory concentration <= NRG Amoxicillin and clavulanate potassium susc ANA M = NRG Complete blood count (CBC) with automate d white blood cell (WBC) differential - 11/03/19 08:24 Blood leukocytes automated count (number/volume) 6.0 10*3/uL 4.3-11.0 Blood erythrocytes automated count (number/volume) 4.93 10*6/uL 4.35-5.85 Venous blood hemoglobin measurement (mass/volume) 13.8 g/dL 11.5-16.0 Blood hematocrit (volume fraction) 43 % 35-52 Automated erythrocyte mean corpuscular volume 87 [ foz_us] 80-99 Automated erythrocyte mean corpuscular h emoglobin (mass per erythrocyte) 28 pg 25-34 Automated erythrocyte mean corpuscular h emoglobin concentration measurement (mass/volume) 32 g/dL 32-36 Automated erythrocyte distribution width ratio 13. 5 % 10.0- 14.5 Automated blood platelet count (count/volume) 169 10*3/uL 130-400 Automated blood platelet mean volume measurement 11.7 [foz_us] 7.4-10.4 Automated blood neutrophils/100 leukocytes 62 % 42-75 Automated blood lymphocytes/100 leukocytes 31 % 12-44 Blood monocytes/100 leukocytes 6 % 0-12 Automated blood eosinophils/100 leukocytes 1 % 0-10 Automated blood basophils/100 leukocytes 0 % 0-10 Blood neutrophils automated count (number/volume) 3.7 10*3 1.8-7.8 Blood lymphocytes automated count (number/volume) 1.9 10*3 1.0-4.0 Blood monocytes automated count (number/volume) 0. 4 10*3 0.0-1.0 Automated eosinophil count 0.1 10*3/uL 0 .0-0.3 Automated blood basophil count (count/volume) 0.0 10*3/uL 0.0-0.1 Comprehensive metabolic panel - 11/03/19 08:24 Serum or plasma sodium measurement (moles/volume) 139 mmol/L 135-145 Serum or plasma potassium measurement (moles/volume) 3.8 mmol/L 3.6-5.0 Serum or plasma chloride measurement (moles/volume) 107 mmol/L 98-107 Carbon dioxide 24 mmol/L 21-32 Serum or plasma anion gap determination (moles/volume) 8 mmol/L 5-14 Serum or plasma urea nitrogen measurement (mass/volume ) 11 mg/dL 7-18 Serum or plasma creatinine measurement (mass/volume) 0.79 mg/dL 0.60-1.30 Serum or plasma urea nitrogen/creatinine mass ratio 14 NRG Serum or plasma creatinine measurement w ith calculation of estimated glomerular filtration rate > NRG Serum or plasma glucose measurement (mass/volume) 88 mg/dL 70-105 Serum or plasma calcium measurement (mass/volume) 9.4 mg/dL 8.5-10.1 Serum or plasma total bilirubin measurement (mass/volu me) 0.6 mg/dL 0.1-1.0 Serum or plasma alkaline phosphatase marvin surement (enzymatic activity/volume) 52 U/L 40-136 Serum or plasma aspartate aminotransfera se measurement (enzymatic activity/volume) 12 U/L 5-34 Serum or plasma alanine aminotransferase measurement (enzymatic activity/volume) 16 U/L 0-55 Serum or plasma protein measurement (mass/volume) 7.4 g/dL 6.4-8.2 Serum or plasma albumin measurement (mass/volume) 4.4 g/dL 3.2-4.5 CALCIUM CORRECTED 9.1 mg/dL 8.5-10.1 Serum or plasma amylase measurement (enz ymatic activity/volume) - 11/03/19 08:24 Serum or plasma amylase measurement (enzymatic activit y/volume) 53 U/L 25-125 Lipase - 11/03/19 08:24 Lipase 15 U/L 8-78 Encounters ACCT No. Visit Date/Time Discharge Status Pt. Type Provider Facility Loc./Unit Complaint [id number] 09/01/2014 11:23:00 09/01/2014 23:59: 59 [facility] Outpatient ROGERS CHAPARRO DO [id number] 08/19/2014 09:27:00 08/19/2014 23:59: 59 [facility] Outpatient LUCRECIA HOFFMAN APRN [id number] 07/29/2014 15:44:00 07/29/2014 23:59: 59 [facility] Outpatient LUCRECIA HOFFMAN APRN [id number] 06/03/2014 16:32:00 06/03/2014 23:59: 59 [facility] Outpatient ROGERS CHAPARRO DO [id number] 03/16/2014 13:42:00 03/16/2014 23:59: 59 [facility] Outpatient ROGERS CHAPARRO DO [id number] 02/11/2014 09:49:00 02/11/2014 23:59: 59 [facility] Outpatient GRACE DALE APRN [id number] 12/25/2013 10:55:00 12/25/2013 23:59: 59 [facility] Outpatient ROGERS CHAPARRO DO [id number] 11/02/2019 15:45:00 11/02/2019 23:59: 59 CLS Outpatient COLIN ESPARZA [facility] [id number] 07/01/2018 08:40:00 Document Registration [id number] 02/21/2018 13:05:00 Document Registration [id number] 11/03/2019 08:01:00 10:38:00 DIS Emergency ANT VANNESA ARROYO Yunier Campos a [facility] ER LOWER ABD PAIN [id number] 06/09/2019 09:37:00 15:00:00 DIS Outpatient WANDA CABRERA DO [facility] SDC RETAINED INTRAUTERINE DEVICE [id number] 06/05/2019 10:55:00 11:03:00 DIS Outpatient WANDA CABRERA DO [facility] PREOP RETAINED IUD [id number] 08/23/2017 08:45:00 017 23:59:59 CLS Outpatient MADL, BLADIMIR L FOURDRINIER OPERATOR [facility] RAD EPIGASTRIC PAIN [id number] 12/13/2016 08:07:00 017 23:59:59 CLS Outpatient MADL, BLADIMIR L FOURDRINIER OPERATOR [facility] RAD MULTIPLE THYROID NODULE S [id number] 12/28/2015 11:12:00 016 23:59:59 CLS Outpatient MADL, BLADIMIR L FOURDRINIER OPERATOR [facility] CARD THYROIDMEGALY [id number] 12/20/2015 07:59:00 016 23:59:59 CLS Outpatient MADL, BLADIMIR L FOURDRINIER OPERATOR [facility] RAD HX OF THYROID CYST [id number] 07/30/2015 12:14:00 015 23:59:59 CLS Outpatient WANDA CABRERA DO [facility] RAD IUD COMPLICATIONS [id number] 09/06/2014 05:43:00 014 07:04:00 DIS Emergency TAMEKA BARAJAS MD [facility] ER ABD PAIN;COUGH [id number] 07/18/2014 07:17:00 014 08:13:00 DIS Emergency ANT TODDA Yunier Vi [facility] ER COUGH CONGESTION [id number] 07/24/2013 19:06:00 22:15:00 DIS Outpatient CHAPARRO ROGERS Yunier [facility] WSo ABD PAIN [id number] 07/08/2013 10:04:00 13:35:00 DIS Outpatient DIXON PATRICK MD [facility] WSo C/O ABD PAIN [id number] 04/28/2013 17:37:00 23:59:59 CLS Outpatient [id number] 01/03/2013 12:57:00 Document Registration [id number] 01/02/2013 10:06:00 Document Registration [id number] 12/31/2012 08:14:00 Document Registration [id number] 08/02/2012 15:26:00 Document Registration [id number] 07/31/2012 14:52:00 Document Registration
== END 2019-11-03 10:38 | disposition home or self-care (01) ==
LOC: EDUNIT# 08:00 → ER 08:01
DX: N39.0 Urinary tract infection, site not specified (principal); N83.201 Unspecified ovarian cyst, right side; Z88.2 Allergy status to sulfonamides
CPT/HCPCS: 36415; 74022; 74177; 80053; 81000; 82150; 83690; 84703; 85025; 87077; 87088; 87186; 96361; 96374; 96375

== ENCOUNTER → 2020-07-15 | Outpatient (CLI) | payer BC ==
[~2020-07-15] MED LIST changes: +NITR-65 PO; +TRAM-42 PO
--- NOTE | 2020-07-15 13:28 | Diagnostic Imaging Report ---
INDICATION: survey. TECHNIQUE: Multiple real-time grayscale images were obtained over the gravid uterus. COMPARISON: None. FINDINGS: There is a single live fetus in a breech presentation. heart rate was recorded at 170 BPM. Placenta is fundal. Amniotic fluid volume is normal. Cervical length is 5.3 cm. kidneys, bladder, and stomach are unremarkable. brain is unremarkable. There is a four-chamber heart. There is a three-vessel cord with normal insertion. spine is unremarkable. Biometrical measurements are as follows: Biparietal 4.77 cm, age 20 weeks 3 days. Head circumference 18.23 cm, age 20 weeks 5 days. Abdominal circumference 15.5 cm, age 20 weeks 5 days. Femur length 3.2 cm, age 20 weeks 0 days. Sonographic estimate age: 20 weeks 4 days. Sonographic estimated date of delivery: 12/06/2020. Estimated Weight: 348 gm (+/- 51 gm). LMP percentile: 92%. heart rate: 170 beats per minute. number: 1 of 1. IMPRESSION: Single live IUP of 20 weeks 4 days gestational age. Estimated date of confinement sonographically is 12/06/2020. Dictated by: Dictated on workstation # [id number]
== END ==
LOC: RAD 09:25
PROVIDERS: ATTEND Obstetrics & Gynecology
DX: Z34.92 Encounter for supervision of normal pregnancy, unspecified, second trimester (principal); Z3A.20 20 weeks gestation of pregnancy
CPT/HCPCS: 76805

== ENCOUNTER 2020-11-25 23:50 | Inpatient (IN) | payer BC ==
[~2020-11-25] VITALS: Ht 160 cm; Wt 83.1 kg
[2020-11-26] VITALS (11 sets, daily range): BP systolic 108–133; BP diastolic 60–88
[2020-11-26] MEDS ORDERED: PREN-142 PO (00:25)
[2020-11-26] MEDS ORDERED: ASPI-999 PO (00:26)
[2020-11-26] MEDS ORDERED: D5 LR IV SOLUTION 1,000 ML IV ONE (01:22)
[2020-11-26] MEDS ORDERED: D5 LR IV SOLUTION 1,000 ML IV SCH (01:30)
[2020-11-26 02:00] LABS: BASOPHILS % (AUTO) 0 % (0-10); EOSINOPHILS % (AUTO) 0 % (0-10); HEMATOCRIT 38 % (35-52); HEMOGLOBIN 12.3 g/dL (11.5-16.0); LYMPHOCYTES # (AUTO) 1.9 10^3/uL (1.0-4.0); LYMPHOCYTES % (AUTO) 19 % (12-44); MEAN CORPUSCULAR HEMOGLOBIN 29 pg (25-34); MEAN CORPUSCULAR HGB CONC 32 g/dL (32-36); MEAN CORPUSCULAR VOLUME 91 fL (80-99); MEAN PLATELET VOLUME 12.8 fL (9.0-12.2); MONOCYTES # (AUTO) 0.8 10^3/uL (0.0-1.0); MONOCYTES % (AUTO) 8 % (0-12); NEUTROPHILS # (AUTO) 7.3 10^3/uL (1.8-7.8); NEUTROPHILS % (AUTO) 72 % (42-75); PLATELET COUNT 116 10^3/uL (130-400); WHITE BLOOD COUNT 10.2 10^3/uL (4.3-11.0)
[2020-11-26] MEDS ORDERED: OXYTOCIN PRE-MIX DRIP 1,000 ML IV ONE ×2 (02:08→03:29)
[2020-11-26] MEDS ORDERED: FAMOTIDINE 20MG/2ML IV (PEPCID) ONE (02:25)
[2020-11-26] MEDS ORDERED: CITRIC ACID/SOB CIT (BICITRA) 30 ML UDC ONE (02:25)
[2020-11-26] MEDS ORDERED: METOCLOPRAMIDE INJ 10 MG/2 ML (REGLAN) ONE (02:25)
[2020-11-26] MEDS ORDERED: WATER (STERILE) FOR INJECTION 20 ML ONE (02:26)
[2020-11-26] MEDS ORDERED: ceFAZolin INJECTION 1,000 MG ONE (02:26)
[2020-11-26] MEDS ORDERED: CATHETER FLUSH 10 ML SYR IV PRN (02:45)
[2020-11-26] MEDS ORDERED: CITRIC ACID/SOB CIT (BICITRA) 30 ML UDC PO ONE (02:45)
[2020-11-26] MEDS ORDERED: LACTATED RINGERS 1,000 ML IV PRN ×2 (02:45)
[2020-11-26] MEDS ORDERED: METOCLOPRAMIDE INJ 10 MG/2 ML (REGLAN) IV ONE (02:45)
[2020-11-26] MEDS ORDERED: FAMOTIDINE 20MG/2ML IV (PEPCID) IV ONE (02:45)
[2020-11-26] MEDS ORDERED: fentaNYL INJECTION 100 MCG/2 ML AMP ONE (03:29)
[2020-11-26 04:17] LABS: BILIRUBIN,URINE NEGATIVE (NEGATIVE); CLARITY,URINE SL CLOUDY; COLOR,URINE YELLOW; GLUCOSE, URINE (UA) NEGATIVE (NEGATIVE); KETONES,URINE NEGATIVE (NEGATIVE); LEUKOCYTE ESTERASE ,URINE NEGATIVE (NEGATIVE); NITRITE,URINE NEGATIVE (NEGATIVE); PROTEIN,URINE NEGATIVE (NEGATIVE)
[2020-11-26] MEDS ORDERED: ONDANSETRON 4 MG/2 ML (SDV) Z0FRAN ONE (04:17)
--- NOTE | 2020-11-26 04:18 | History & Physical-OB ---
OB - Chief Complaint & HPI Date/Time Date of Admission: Date of Admission: Nov 26, 2020 at 04:00 Date seen by a Provider: Nov 26, 2020 Time Seen by a Provider: 04:00 Chief Complaint/History OB-Reason for Admission/Chief: Onset of Labor Hx : 2 Hx Para: 1 Expected Date of Delivery: Dec 06, 2020 Gestational Age in Weeks: 38 Gestational Age in Days: 4 Indication for : desires repeat Other reason for admission: Patient admitted in labor and history of previous . Her first was complicated by severe preE, and she was delivered at 34 weeks. She has been taking daily asprin this without any significant changes in her BP in the 3rd trimester. Admission Nurse Assessment Rev: Yes History of Labs O pos Antibody neg RI RPR NR HBsAg NR HIV NR GC neg GBS neg Allergies and Home Medications Allergies Coded Allergies: Sulfa (Sulfonamide Antibiotics) (Unverified Adverse Reaction, Intermediate, rash, throat swelling, 12/31/12) Patient Home Medication List Home Medication List Reviewed: Yes OB - History Hx of Present Care: Yes Ultrasounds: Normal mid trimester US Obstetrical Complications: None Medical Complications: None Obstetrical History Hx : 2 Hx Para: 1 Delivery History Hx Blood Disorders: No Patient Past Medical History n/a Social History/Family History Recreational Drug Use: No 2nd Hand Smoke Exposure: No Immunizations Hepatitis A: Yes Hepatitis B: Yes Tetanus Booster (TDap): Unknown Date of Influenza Vaccine: Jul 08, 2013 OB - Admission Exam Physical Exam Vitals: Vital Signs 11/26/20 01:00 Temp 36.3 Pulse 78 Resp 18 B/P (MAP) 133/73 (93) Pulse Ox 97 O2 Delivery Room Air HEENT: NCAT Heart: Rhythm Normal Lungs: Clear Abdomen: Gravid Extremities: Normal Reflexes: Normal Cervical Dilatation: 2cm Effacement: 75% Station: -1 Membranes: Intact Heart Rate: 130's Accelerations: Accelerations Present Decelerations: No Decelerations Short Term Variability: Present Commercial Subcontractor Variability: Average (6-25) Contractions on Admission: 6-10 Minutes Apart Intensity: Firm Labs Laboratory Tests Test 11/26/20 01:35 Range/Units White Blood Count 10.2 4.3-11.0 10^3/uL Red Blood Count 4.22 3.80-5.11 10^6/uL Hemoglobin 12.3 11.5-16.0 g/dL Hematocrit 38 35-52 % Mean Corpuscular Volume 91 80-99 fL Mean Corpuscular Hemoglobin 29 25-34 pg Mean Corpuscular Hemoglobin Concent 32 32-36 g/dL Red Cell Distribution Width 14.3 10.0-14.5 % Platelet Count 116 L 130-400 10^3/uL Mean Platelet Volume 12.8 H 9.0-12.2 fL Immature Granulocyte % (Auto) 1 % Neutrophils (%) (Auto) 72 42-75 % Lymphocytes (%) (Auto) 19 12-44 % Monocytes (%) (Auto) 8 0-12 % Eosinophils (%) (Auto) 0 0-10 % Basophils (%) (Auto) 0 0-10 % Neutrophils # (Auto) 7.3 1.8-7.8 10^3/uL Lymphocytes # (Auto) 1.9 1.0-4.0 10^3/uL Monocytes # (Auto) 0.8 0.0-1.0 10^3/uL Eosinophils # (Auto) 0.0 0.0-0.3 10^3/uL Basophils # (Auto) 0.0 0.0-0.1 10^3/uL Immature Granulocyte # (Auto) 0.1 0.0-0.1 10^3/uL OB - Assessment/Plan/Diagnosis Assessment Assessment: section Admission Dx 25 yo @ 38 weeks Previous Active labor GBS neg Admission Status: Inpatient Order (span 2 midnights) Reason for Inpatient Admission: Repeat at 38 weeks Plan Plan: Section WANDA CABRERA DO Nov 26, 2020 04:18
--- NOTE | 2020-11-26 04:20 | Discharge Inst-Women's Service ---
Discharge Inst-Women's Serv Depart Medication/Instructions New, Converted or Re-Newed RX: RX on Chart Final Diagnosis POD 2 RLTCS Problems Reviewed?: Yes Consults/Follow Up Additional Follow Up: Yes Orders/Referrals Dr. Rapp in 7-10 days and in 6 weeks Activity Activity: Activity as Tolerated Driving Instructions: No Driving for 1 Week NO SMOKING: NO SMOKING Nothing Inside Vagina: No Douching, No [place], No Tampons Diet Discharge Diet: No Restrictions Symptoms to Report to : Bleeding Excessive, Pain Increased, Fever Over 101 Degrees F, Vaginal Bleeding Increase, Questions/Concerns For Any Problems or Questions: Contact Your Physician Skin/Wound Care Infection Signs and Symptoms: Increased Redness, Foul Odor of Wound, Increased Drainage, Skin Itchy or Has a Rash, Increased Swelling, Temperature Above 101 F Operative Area Clean and Dry: Keep Incision Clean/Dry Stitches/Ariadne/Dermabond: Dermabond, Care of Stitches Bathing Instructions: WANDA Brar DO Nov 26, 2020 04:20
[2020-11-26] MEDS ORDERED: ACHD5005 PO (04:21)
[2020-11-26] MEDS ORDERED: DCS100C PO (04:21)
[2020-11-26] MEDS ORDERED: IBUP-844 PO (04:21)
[2020-11-26] MEDS ORDERED: MEASLES,MUMPS,RUBELLA 1 EA INJ SC SCH (04:30)
[2020-11-26] MEDS ORDERED: ONDANSETRON 4 MG/2 ML (SDV) Z0FRAN IVP PRN (04:30)
[2020-11-26] MEDS ORDERED: TETANUS,DIPTH,PERTUSS P/F (BOOSTRIX) 0.5 ML VIAL IM SCH (04:30)
[2020-11-26 04:32] LABS: BACTERIA,URINE FEW /HPF
[2020-11-26] MEDS ORDERED: BUPIVACAINE 0.5% 30 ML (SENSORCAINE) VIAL ONE (04:34)
[2020-11-26] MEDS ORDERED: diphenhydrAMINE 50 MG/ML INJ (BENADRYL) IV PRN (05:30)
[2020-11-26] MEDS ORDERED: METOCLOPRAMIDE INJ 10 MG/2 ML (REGLAN) IV PRN (05:30)
[2020-11-26] MEDS ORDERED: ONDANSETRON 4 MG/2 ML (SDV) Z0FRAN IV PRN (05:30)
[2020-11-26] MEDS ORDERED: NALOXONE 0.4 MG/ML 1 ML (NARCAN) VIAL IV PRN ×2 (05:30)
[2020-11-26] MEDS ORDERED: CATHETER FLUSH 10 ML SYR IV SCH (06:00)
[2020-11-26] MEDS: OXYTOCIN PRE-MIX DRIP 500 ML IV SCH ×2 (06:06→10:40)
--- NOTE | 2020-11-26 06:09 | OPERATIVE REPORT ---
DATE OF SERVICE: PREOPERATIVE DIAGNOSES: 1. A 25-year-old G2, P1 at 38 weeks and 4 days gestation. 2. Previous section. 3. Active labor. POSTOPERATIVE DIAGNOSES: 1. A 25-year-old G2, P1 at 38 weeks and 4 days gestation. 2. Previous section. 3. Active labor. PROCEDURE: Repeat low transverse section. SURGEON: Varghese Rapp DO ANESTHESIA: Spinal. ESTIMATED BLOOD LOSS: 600 mL. URINE OUTPUT: 150 mL clear at the end of the procedure. FLUIDS: 1400 mL lactated Ringer's solution. FINDINGS: A live male infant weighing 7 pounds 7 ounces, Apgars of 9 and 9. Grossly normal appearing uterus, bilateral fallopian tubes and ovaries. SPECIMEN SENT: None. INDICATIONS FOR PROCEDURE: This 25-year-old female is a patient who presented in spontaneous labor with a history of previous . We had discussed , which she had opted to proceed with repeat upon arrival to the hospital due to her remoteness from delivery and intolerance of the pain that she was having. Risks of the procedure were discussed with the patient in detail including risk of bleeding, infection, damage to surrounding structures including, but not limited to bowel, bladder, ureter, kidneys, possible need for operation, postoperative complications that may occur, risk from anesthesia and even . After everything was discussed with the patient in detail and all of her questions were answered, consent was obtained in the preoperative area, the patient was taken to the operating room. OPERATIVE REPORT IN DETAIL: Once in the operating room, spinal analgesia was found to be adequate. She was placed in supine position with leftward tilt, prepped and draped in normal sterile fashion where a timeout was performed and anesthesia was tested. I then make a Pfannenstiel skin incision through the previously existing scar using knife and carried down to underlying fascia using Bovie cautery. The fascial incision extended laterally using Bovie cautery. Superior aspect of fascial incision was then grasped with Noel clamps, tented up and dissected off the underlying rectus muscles. The inferior aspect of the fascial incision was then grasped with Noel clamps, tented up and dissected off the underlying rectus muscles. Rectus muscle was then dissected down the midline using Walker scissors, which exposed the peritoneum, which I entered bluntly and extended using blunt traction. Jon ring retractor was placed in the peritoneal incision, which offers excellent lateral sidewall retraction. I then identified the lower uterine segment, which was found to be thinned out and make a low transverse incision to the vesicouterine peritoneum and bluntly dissected off the lower uterine segment, creating a bladder flap. I then proceeded with my myotomy until membranes were visualized, at which point I extended the uterine incision laterally and superiorly using bandage scissors. Amniotomy was then performed using Allis clamp. Clear fluid was noted. was found in vertex presentation. With gentle fundal pressure, the 's head was elevated and delivered through the incision where the nares and oropharynx were bulb suctioned. Anterior and posterior shoulders were delivered. Infant was then brought to the operative field with cord was duly clamped and cut and infant was handed off to waiting nurses in attendance. Cord blood was collected, 3-vessel cord with intact placenta was delivered spontaneously thereafter. IV Pitocin was initiated to facilitate uterine contraction. Uterine fundus confirmed by manual massage. Uterus was then exteriorized and cleared of all endometrial clots and debris. I then proceeded with closing the uterine incision using 0 Vicryl suture in running locked fashion. Second layer of imbricating 0 Monocryl was placed. Excellent hemostasis was noted after doing this. I then placed the uterus back within the pelvis and copiously irrigated the pelvis using normal saline. Once again, there was no active bleeding noted from any of my dissection planes. I placed Interceed antiadhesive over my low transverse incision and proceeded with removing the Jon ring retractor. The peritoneum was then reapproximated using 3-0 Vicryl suture in a running fashion. Rectus muscle reapproximated using 3-0 Vicryl suture in interrupted fashion. The fascia was reapproximated using 0 Vicryl suture in running fashion. Subcutaneous tissue was reapproximated using 3-0 plain interrupted subcutaneous stitch and skin reapproximated using 4-0 Monocryl running subcuticular. Dermabond was applied to incision and sterile dressing was adhesed with white tape. The patient tolerated the procedure well and was taken to recovery area in stable condition. Lap and sponge counts were correct at the end of the procedure. Instrument counts were correct as well. Two grams of Ancef were given preoperatively for infection prophylaxis. Job ID: [id number] DocumentID: [id number] Dictated Date: 11/26/2020 05:03:03 Human Resource Consultant Date: 11/26/2020 06:08:52 Dictated By: DO TANVI WALTERS
--- NOTE | 2020-11-26 07:25 | Anesthesia-Regional Post-Op ---
Regional Patient Condition Mental Status: Alert, Oriented x3 Circulation: Same as Pre-Op Headache: Absent Sensation: Full Recovery Motor Block: Absent Post Op Complications Complications None Follow Up Care/Instructions Patient Instructions None needed. Anesthesia/Patient Condition Patient is doing well, no complaints, stable vital signs, no apparent adverse anesthesia problems. No complications reported per nursing. KAYLA ESTRADA CRNA Nov 26, 2020 07:25
[2020-11-26] MEDS: DOCUSATE SODIUM 100 MG (COLACE) CAP PO SCH ×2 (07:55→22:27)
[2020-11-26] MEDS: KETOROLAC 30 MG/ML VIAL IV SCH ×3 (07:55→22:26)
[2020-11-26] MEDS: HYDROcodone/APAP 5 MG/325 MG (LORTAB) TAB PO PRN ×4 (09:46→22:27)
[2020-11-27 00:40] VITALS: BP 120/70
[2020-11-27] MEDS: KETOROLAC 30 MG/ML VIAL IV SCH (04:25)
[2020-11-27] MEDS: HYDROcodone/APAP 5 MG/325 MG (LORTAB) TAB PO PRN ×4 (04:26→19:59)
[2020-11-27 05:10] VITALS: BP 140/63
[2020-11-27 05:12] LABS: BASOPHILS % (AUTO) 0 % (0-10); EOSINOPHILS % (AUTO) 1 % (0-10); HEMATOCRIT 34 % (35-52); LYMPHOCYTES # (AUTO) 1.6 10^3/uL (1.0-4.0); LYMPHOCYTES % (AUTO) 22 % (12-44); MEAN CORPUSCULAR HEMOGLOBIN 30 pg (25-34); MEAN CORPUSCULAR HGB CONC 33 g/dL (32-36); MEAN CORPUSCULAR VOLUME 91 fL (80-99); MEAN PLATELET VOLUME 12.8 fL (9.0-12.2); MONOCYTES # (AUTO) 0.5 10^3/uL (0.0-1.0); MONOCYTES % (AUTO) 6 % (0-12); NEUTROPHILS # (AUTO) 5.3 10^3/uL (1.8-7.8); NEUTROPHILS % (AUTO) 70 % (42-75); PLATELET COUNT 87 10^3/uL (130-400); WHITE BLOOD COUNT 7.6 10^3/uL (4.3-11.0)
--- NOTE | 2020-11-27 08:57 | Progress Note ---
Standard Progress Note Progress Notes/Assess & Plan Date Seen by a Provider: Nov 27, 2020 Time Seen by a Provider: 08:55 Progress/Assessment & Plan This patient is without complaint. She is ambulating, voiding, tolerating oral intake well and has adequate pain control. She does report that the pain medication does not last six or 7 hours as required for the next dose of pain medication. We discussed increasing the frequency of her narcotic pain medication Vital Signs Date Time Temp Pulse Resp B/P (MAP) Pulse Ox O2 Delivery O2 Flow Rate FiO2 11/27/20 05:10 36.8 86 18 140/63 (88) 96 Room Air 11/27/20 00:40 37.0 77 18 120/70 (87) 97 Room Air 11/26/20 16:25 36.7 83 18 121/69 (86) 96 Room Air 11/26/20 11:45 36.6 80 18 127/60 (82) 96 Room Air I & O0 11/27/20 06:59 Intake Total 500 ml Balance 500 ml Vital signs are stable. Patient is afebrile. The abdomen is benign Extremities show no clubbing or cyanosis. There is no Homans' sign. Assessment and plan postoperative day #1 status post delivery doing well. Plan is for routine convalescent care KIRK HENRY MD Nov 27, 2020 08:57
[2020-11-27 10:11] VITALS: BP 124/80
[2020-11-27] MEDS: IBUPROFEN 600 MG (MOTRIN) TAB PO SCH ×4 (10:12→22:49)
[2020-11-27] MEDS: DOCUSATE SODIUM 100 MG (COLACE) CAP PO SCH ×2 (10:12→19:58)
[2020-11-27 16:44] VITALS: BP 122/70
[2020-11-27 22:49] VITALS: BP 128/61
[2020-11-28] MEDS: HYDROcodone/APAP 5 MG/325 MG (LORTAB) TAB PO PRN ×2 (02:20→08:39)
[2020-11-28 06:07] VITALS: BP 124/77
[2020-11-28] MEDS: IBUPROFEN 600 MG (MOTRIN) TAB PO SCH ×2 (06:07→12:35)
[2020-11-28 08:30] VITALS: BP 126/60
[2020-11-28] MEDS: DOCUSATE SODIUM 100 MG (COLACE) CAP PO SCH (08:39)
--- NOTE | 2020-11-28 09:51 | Progress Note ---
Standard Progress Note Progress Notes/Assess & Plan Date Seen by a Provider: Nov 28, 2020 Time Seen by a Provider: 09:49 Progress/Assessment & Plan This patient is without complaint. She is ambulating, voiding, tolerating oral intake well and has adequate pain control. She does report that the pain medication does not last six or 7 hours as required for the next dose of pain medication. We discussed increasing the frequency of her narcotic pain medication Vital Signs Date Time Temp Pulse Resp B/P (MAP) Pulse Ox O2 Delivery O2 Flow Rate FiO2 11/27/20 05:10 36.8 86 18 140/63 (88) 96 Room Air 11/27/20 00:40 37.0 77 18 120/70 (87) 97 Room Air 11/26/20 16:25 36.7 83 18 121/69 (86) 96 Room Air 11/26/20 11:45 36.6 80 18 127/60 (82) 96 Room Air I & O0 11/27/20 06:59 Intake Total 500 ml Balance 500 ml Vital signs are stable. Patient is afebrile. The abdomen is benign Extremities show no clubbing or cyanosis. There is no Homans' sign. Assessment and plan postoperative day #1 status post delivery doing well. Plan is for routine convalescent care November 28, 2020 This patient is without complaint. She is ambulating, voiding, tolerating oral intake well and has good pain control. She is requesting discharge home. Vital Signs Date Time Temp Pulse Resp B/P (MAP) Pulse Ox O2 Delivery O2 Flow Rate FiO2 11/28/20 08:30 37.0 92 18 126/60 (82) 96 Room Air 11/28/20 06:07 36.6 87 18 124/77 (93) 97 Room Air 11/27/20 22:49 36.4 82 18 128/61 (83) 97 Room Air 11/27/20 16:44 36.6 89 18 122/70 (87) 96 Room Air 11/27/20 10:11 36.5 95 18 124/80 (95) 96 Room Air Vital signs are stable. Patient is afebrile. The abdomen is benign. The surgical incision is clean dry and intact extremities show no clubbing or cyanosis. There is no Homans' sign. There are some pretibial pitting edema that is normal. Assessment and plan postoperative day #2 status post repeat delivery doing well. Plan is for discharge home with follow-up in clinic KIRK HENRY MD Nov 28, 2020 09:51
[2020-11-28 12:51] VITALS: BP 126/60
== END 2020-11-28 12:51 | disposition home or self-care (01) | DRG 788 ==
LOC: LDRP 23:50 → WSo 23:50 → LDRP 11-26 04:00
PROVIDERS: ADMIT Obstetrics & Gynecology; ATTEND Obstetrics & Gynecology
PROC: 10D00Z1 Extraction of Products of Conception, Low, Open Approach (ICD-10-PCS; principal; 2020-11-26 04:10)
DX: O34.211 Maternal care for low transverse scar from previous cesarean delivery (principal); Z3A.38 38 weeks gestation of pregnancy; Z37.0 Single live birth; Z20.822 Contact with and (suspected) exposure to COVID-19
CPT/HCPCS: 36415; 81000; 85025; 86850; 86900; 86901; 87081; 87635; 94664; 99212

== ENCOUNTER → 2021-06-08 | Outpatient (CLI) | payer BC ==
[~2021-06-08] MED LIST changes: +ACHD5005 PO; +ASPI-999 PO; +DCS100C PO; +IBUP-844 PO; +PREN-142 PO
--- NOTE | 2021-06-08 12:18 | Diagnostic Imaging Report ---
PROCEDURE: Pelvic comp/transvaginal sonogram. TECHNIQUE: Complete transabdominal and transvaginal pelvic ultrasound was performed. In addition, limited pelvic Doppler was performed. INDICATION: Left-sided pelvic pain. Patient is 6 months . Uterus is retroverted measuring 7.9 x 2.7 x 4.9 cm. Endometrium is 2 mm in thickness. No myometrial mass is identified. Right ovary measures 2.3 x 1.5 x 2.0 cm. There is normal blood flow to the right ovary. There are prominent vessels in the left adnexa, perhaps owing to pelvic congestion. The left ovary was not well-visualized. There is no free fluid identified. IMPRESSION: Unremarkable transabdominal and transvaginal pelvic ultrasound with the exception of nonvisualized left ovary. There is prominent vasculature in the left adnexa which can be seen with pelvic congestion. No other significant abnormality is seen. Dictated by: Dictated on workstation # [id number]
== END ==
LOC: RAD 10:30
PROVIDERS: ATTEND Obstetrics & Gynecology
DX: R10.2 Pelvic and perineal pain (principal)
CPT/HCPCS: 76830; 76856

== ENCOUNTER 2021-10-07 01:42 | Emergency (ER) | payer BC ==
[~2021-10-07 01:42] MED LIST changes: -DCS100C PO; +DOCU-239 PO
[2021-10-07] MEDS ORDERED: LACTATED RINGERS 1,000 ML IV ONE (02:30)
[2021-10-07 02:43] LABS: BASOPHILS % (AUTO) 1 % (0-10); EOSINOPHILS # (AUTO) 0.1 10^3/uL (0.0-0.3); EOSINOPHILS % (AUTO) 1 % (0-10); HEMATOCRIT 45 % (35-52); HEMOGLOBIN 14.8 g/dL (11.5-16.0); LYMPHOCYTES # (AUTO) 0.8 10^3/uL (1.0-4.0); LYMPHOCYTES % (AUTO) 10 % (12-44); MEAN CORPUSCULAR HEMOGLOBIN 29 pg (25-34); MEAN CORPUSCULAR HGB CONC 33 g/dL (32-36); MEAN CORPUSCULAR VOLUME 89 fL (80-99); MEAN PLATELET VOLUME 11.2 fL (9.0-12.2); MONOCYTES # (AUTO) 0.4 10^3/uL (0.0-1.0); MONOCYTES % (AUTO) 5 % (0-12); NEUTROPHILS # (AUTO) 6.7 10^3/uL (1.8-7.8); NEUTROPHILS % (AUTO) 83 % (42-75); PLATELET COUNT 163 10^3/uL (130-400)
[2021-10-07 02:52] LABS: BILIRUBIN,URINE NEGATIVE (NEGATIVE); CLARITY,URINE CLEAR; COLOR,URINE YELLOW; GLUCOSE, URINE (UA) NEGATIVE (NEGATIVE); KETONES,URINE NEGATIVE (NEGATIVE); LEUKOCYTE ESTERASE ,URINE NEGATIVE (NEGATIVE); NITRITE,URINE NEGATIVE (NEGATIVE); PROTEIN,URINE NEGATIVE (NEGATIVE)
[2021-10-07 02:57] LABS: ALBUMIN 4.8 GM/DL (3.2-4.5); CHLORIDE 104 MMOL/L (98-107); SODIUM 138 MMOL/L (135-145)
[2021-10-07 02:58] LABS: AMYLASE 53 U/L (25-125); CALCIUM 9.7 MG/DL (8.5-10.1)
[2021-10-07 02:59] LABS: GLUCOSE 95 MG/DL (70-105); TOTAL PROTEIN 7.9 GM/DL (6.4-8.2)
[2021-10-07 03:00] LABS: CARBON DIOXIDE 21 MMOL/L (21-32)
[2021-10-07 03:01] LABS: BILIRUBIN,TOTAL 0.8 MG/DL (0.1-1.0)
[2021-10-07 03:03] LABS: ALKALINE PHOSPHATASE 83 U/L (40-136); CREATININE SERUM 0.78 MG/DL (0.60-1.30); GFR ESTIMATED 106
[2021-10-07 03:04] LABS: BUN/CREATININE RATIO 27
[2021-10-07 03:06] LABS: ALANINE AMINOTRANSFERASE 14 U/L (0-55); LIPASE 26 U/L (8-78)
[2021-10-07] MEDS ORDERED: ONDANSETRON 4 MG/2 ML (SDV) Z0FRAN IVP ONE (03:30)
[2021-10-07 03:41] LABS: BACTERIA,URINE TRACE /HPF; RBC,URINE 0-2 /HPF; WBC,URINE 0-2 /HPF
[2021-10-07] MEDS ORDERED: CATHETER FLUSH 10 ML SYR IV PRN (04:15)
[2021-10-07] MEDS ORDERED: HOLD METFORMIN - RECEIVED CONTRAST 20 ML VIAL IV SCH (04:15)
[2021-10-07] MEDS ORDERED: NS 100 ML (IVPB) BAG IV ONE (04:15)
[2021-10-07] MEDS ORDERED: IOHEXOL 350 MG/ML 150 ML (OMNIPAQUE 350) VIAL IV ONE (04:15)
--- NOTE | 2021-10-07 05:37 | ED Abdominal Pain ---
General Chief Complaint: COVID19 Suspect/Confirmed Stated Complaint: RT SIDE PAIN,ABD PAIN Nursing Triage Note: TO ED VIA POV AND AMBULATORY TO ROOM 6 WITH C/O ABD PAIN, FEVER FOR APPROX 1 WEEK. Source of Information: Patient History of Present Illness Date Seen by Provider: Oct 07, 2021 Time Seen by Provider: 02:35 Initial Comments PT ARRIVES VIA POV FROM HOME C/O DIFFUSE UPPER ABDOMINAL PAIN FOR THE LAST WEEK, NOW RADIATING TO RIGHT FLANK AND RIGHT MID AND LOWER ABDOMEN NOTHING WORSENS OR IMPROVES PAIN C/O NAUSEA, NO VOMITING NO DIARRHEA. NORMAL BM YESTERDAY HAD TEMP OF 99 JUST PRIOR TO ARRIVAL NO COUGH OR SHORTNESS OF BREATH STATES SHE HAS BEEN DOING HOME COVID-19 TESTS FOR THE LAST WEEK AND ALL HAVE B EEN NEGATIVE NO KNOWN SICK CONTACTS. PT HAS HAD FLU VACCINE FOR THIS SEASON AND HAS HAD COVID-19 VACCINE 01/2021 HAS NOT TAKEN ANYTHING FOR PAIN AT ANY TIME SYMPTOMS NOT ANY DIFFERENT TONIGHT, STATES "IT JUST DAWNED ON ME TONIGHT, THAT IT MIGHT BE MY APPENDIX" SO CAME HERE TONIGHT. HAD SIMILAR WHILE SHE WAS , AND WAS TOLD SHE HAD SOMETHING WITH HER GALLBLADDER STATES THOSE SYMPTOMS WENT AWAY AFTER SHE DELIVERED, AND HAD NOT HAD ANY PROBLEMS UNTIL THE LAST WEEK DELIVERED VIA 11/26/20. PT IS STILL LMP--FEBRUARY 2020--HAS NOT HAD PERIOD SINCE BEFORE SHE WAS , AND HAS BEEN ON DEPO-PROVERA SINCE DELIVERY, WITH LAST SHOT 10/04/21 NO COGNOS ANALYST COMPLAINTS OR PELVIC PAIN NO CHRONIC ILLNESSES Allergies and Home Medications Allergies Coded Allergies: Sulfa (Sulfonamide Antibiotics) (Unverified Adverse Reaction, Intermediate, rash, throat swelling, 12/31/12) Patient Home Medication List Home Medication List Reviewed: Yes Docusate Sodium (Dok) 100 Mg Capsule, 100 MG PO BID PRN for CONSTIPATION-1ST LINE Prescribed by: WANDA CABRERA on 11/26/20420 Hydrocodone Bit/Acetaminophen (HYDROcodone/APAP 5 MG/325 MG TAB) 1 Tab Tab, 1-2 EA PO Q6HR PRN for PAIN-MODERATE (5-7) Prescribed by: WANDA CABRERA on 11/26/20420 Hyoscyamine Sulfate (Levsin-Sl) 0.125 Mg Tab.subl, 0.25 MG SL Q4H Prescribed by: VANNESA CAIN on 10/07/21 0540 Ibuprofen (Ibu) 600 Mg Tablet, 600 MG PO Q6HR Prescribed by: WANDA CABRERA on 11/26/20 0421 Ketorolac Tromethamine (Ketorolac Tromethamine) 10 Mg Tablet, 10 MG PO Q6H Prescribed by: VANNESA CAIN on 10/07/21 0540 Ondansetron (Ondansetron Odt) 4 Mg Tab.rapdis, 4 MG PO Q4H Prescribed by: VANNESA CAIN on 10/07/21 0540 Pantoprazole Sodium (Protonix) 40 Mg Tablet.dr, 40 MG PO DAILY Prescribed by: VANNESA CAIN on 10/07/21 0540 Vit No.124/Iron/FA ( Vitamin Tablet) 1 Each Tablet, 1 EACH PO, (Reported) Entered as Reported by: VICKI SANDOVAL on 11/26/20 0025 Review of Systems Review of Systems Constitutional: see HPI EENTM: No Symptoms Reported Respiratory: No Symptoms Reported Cardiovascular: No Symptoms Reported Gastrointestinal: See HPI, Abdominal Pain; Denies Constipated, Denies Diarrhea; Nausea Genitourinary: No Symptoms Reported Musculoskeletal: see HPI, back pain Skin: no symptoms reported Psychiatric/Neurological: No Symptoms Reported Endocrine: No Symptoms Reported Hematologic/Lymphatic: No Symptoms Reported Past Ccugoav-Tncejc-Swafxe Hx Patient Social History Tobacco Use?: No Substance use?: No Alcohol Use?: No Immunizations Up To Date Tetanus Booster (TDap): Unknown Second COVID19 Vaccination Arvind: JANUARY 2021 Seasonal Allergies Seasonal Allergies: No Past Medical History Surgeries: Yes (WISDOM TEETH REMOVED; X 2) Section Respiratory: No Currently Using CPAP: No Currently Using BIPAP: No Cardiac: No Neurological: Yes Headaches /Migraines Reproductive Disorders: Yes (HAD HPV VACCINE SERIES IN 2007) Female Reproductive Disorders: Ovarian Cyst Sexually Transmitted Disease: No Genitourinary: No Gastrointestinal: No Musculoskeletal: No Endocrine: No HEENT: No Cancer: No Psychosocial: No Integumentary: No Blood Disorders: No Family Medical History No Pertinent Family Hx Physical Exam Vital Signs Vital Signs - First Documented 10/07/21 02:25 Temp 36.9 Pulse 95 Resp 16 B/P (MAP) 125/71 (89) Pulse Ox 98 O2 Delivery Room Air Capillary Refill : Less Than 3 Seconds Height/Weight/BMI Height: 5'3.00" Weight: 154lbs. 0.0oz. [id number]; 32.46 BMI Method:Stated General Appearance: WD/WN, no apparent distress, other (DOES NOT APPEAR ILL OR TO BE IN ANY DISCOMFORT OR DISTRESS) HEENT: No scleral icterus (R), No scleral icterus (L), No pale conjunctivae (R), No pale conjunctivae (L) Respiratory: normal breath sounds, no respiratory distress, no accessory muscle use Cardiovascular: regular rate, rhythm, no murmur Gastrointestinal: normal bowel sounds, soft, no organomegaly, no pulsatile mass; No distended, No guarding, No rebound; tenderness (RIGHT UPPER QUADRANT TENDERNESS); No hernia, No mass Extremities: normal inspection Back: no CVA tenderness 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, no motor/sensory deficits, alert, normal mood/affect, oriented x 3 Skin: normal color, warm/dry; No rash Progress/Results/Core Measures Results/Orders Lab Results Laboratory Tests Test 10/07/21 02:28 10/07/21 02:32 Range/Units Urine Color YELLOW Urine Clarity CLEAR Urine pH 6.0 5-9 Urine Specific Novelty >=1.030 1.016-1.022 Urine Protein NEGATIVE NEGATIVE Urine Glucose (UA) NEGATIVE NEGATIVE Urine Ketones NEGATIVE NEGATIVE Urine Nitrite NEGATIVE NEGATIVE Urine Bilirubin NEGATIVE NEGATIVE Urine Urobilinogen 0.2 < = 1.0 MG/DL Urine Leukocyte Esterase NEGATIVE NEGATIVE Urine RBC (Auto) NEGATIVE NEGATIVE Urine RBC 0-2 /HPF Urine WBC 0-2 /HPF Urine Squamous Epithelial Cells 2-5 /HPF Urine Crystals NONE /LPF Urine Bacteria TRACE /HPF Urine Casts NONE /LPF Urine Mucus NEGATIVE /LPF Urine Culture Indicated NO White Blood Count 8.0 4.3-11.0 10^3/uL Red Blood Count 5.05 3.80-5.11 10^6/uL Hemoglobin 14.8 11.5-16.0 g/dL Hematocrit 45 35-52 % Mean Corpuscular Volume 89 80-99 fL Mean Corpuscular Hemoglobin 29 25-34 pg Mean Corpuscular Hemoglobin Concent 33 32-36 g/dL Red Cell Distribution Width 12.6 10.0-14.5 % Platelet Count 163 130-400 10^3/uL Mean Platelet Volume 11.2 9.0-12.2 fL Immature Granulocyte % (Auto) 0 % Neutrophils (%) (Auto) 83 H 42-75 % Lymphocytes (%) (Auto) 10 L 12-44 % Monocytes (%) (Auto) 5 0-12 % Eosinophils (%) (Auto) 1 0-10 % Basophils (%) (Auto) 1 0-10 % Neutrophils # (Auto) 6.7 1.8-7.8 10^3/uL Lymphocytes # (Auto) 0.8 L 1.0-4.0 10^3/uL Monocytes # (Auto) 0.4 0.0-1.0 10^3/uL Eosinophils # (Auto) 0.1 0.0-0.3 10^3/uL Basophils # (Auto) 0.0 0.0-0.1 10^3/uL Immature Granulocyte # (Auto) 0.0 0.0-0.1 10^3/uL Sodium Level 138 135-145 MMOL/L Potassium Level 4.0 3.6-5.0 MMOL/L Chloride Level 104 98-107 MMOL/L Carbon Dioxide Level 21 21-32 MMOL/L Anion Gap 13 5-14 MMOL/L Blood Urea Nitrogen 21 H 7-18 MG/DL Creatinine 0.78 0.60-1.30 MG/DL Estimat Glomerular Filtration Rate 106 BUN/Creatinine Ratio 27 Glucose Level 95 70-105 MG/DL Calcium Level 9.7 8.5-10.1 MG/DL Corrected Calcium 8.5-10.1 MG/DL Total Bilirubin 0.8 0.1-1.0 MG/DL Aspartate Amino Transf (AST/SGOT) 11 5-34 U/L Alanine Aminotransferase (ALT/SGPT) 14 0-55 U/L Alkaline Phosphatase 83 40-136 U/L Total Protein 7.9 6.4-8.2 GM/DL Albumin 4.8 H 3.2-4.5 GM/DL Amylase Level 53 25-125 U/L Lipase 26 8-78 U/L Serum Test, Qualitative NEGATIVE NEGATIVE Influenza Type A (RT-PCR) Not Detected Not Detecte Influenza Type B (RT-PCR) Not Detected Not Detecte SARS-CoV-2 RNA (RT-PCR) Not Detected Not Detecte My Orders Orders - VANNESA CAIN DO Ed Iv/Invasive Line Start (10/07/21 02:30) Amylase (10/07/21 02:30) Cbc With Automated Diff (10/07/21 02:30) Comprehensive Metabolic Panel (10/07/21 02:30) Lipase (10/07/21 02:30) Ua Culture If Indicated (10/07/21 02:30) Covid 19 Inhouse Test (10/07/21 02:30) Ed Iv/Invasive Line Start (10/07/21 02:30) Lactated Ringers (Lr 1000 Ml Iv Solution (10/07/21 02:30) Influenza A And B By Pcr (10/07/21 02:30) Isolation Central Supply Req (10/07/21 02:30) Hcg,Qualitative Serum (10/07/21 02:30) Ondansetron Injection (Zofran Injectio (10/07/21 03:30) Ct Abd/Pelv W (Appendicitis) (10/07/21 03:30) Iohexol Injection (Omnipaque 350 Mg/Ml 1 (10/07/21 04:15) Received Contrast (Hold Metformin- Contr (10/07/21 04:15) Sodium Chloride Flush (Catheter Flush Sy (10/07/21 04:15) Ns (Ivpb) (Sodium Chloride 0.9% Ivpb Bag (10/07/21 04:15) Ketorolac Injection (Toradol Injection) (10/07/21 05:45) Medications Given in ED Vital Signs/I&O 10/07/21 10/07/21 02:25 06:13 Temp 36.9 36.9 Pulse 95 80 Resp 16 16 B/P (MAP) 125/71 (89) 105/64 Pulse Ox 98 97 O2 Delivery Room Air Room Air Blood Pressure Mean: 89 Progress Progress Note : Progress Note UNEVENTFUL ER STAY GIVEN IV FLUIDS, ZOFRAN AND TORADOL WITH IMPROVEMENT IN SYMPTOMS Diagnostic Imaging Comments CT ABDOMEN/PELVIS--MILDLY DILATED RIGHT URETER, NON OBSTRUCTIVE STONE IN LEFT KIDNEY, OTHERWISE NO ACUTE PROCESS, PER [facility] VIA FAX AT [id number] Reviewed: Reviewed by Me Departure Impression Primary Impression: Abdominal pain Additional Impression: RUQ abdominal pain Disposition: 01 HOME, SELF-CARE Condition: Improved Departure-Patient Inst. Decision time for Depature: 05:38 Referrals: [facility] (PCP/Family) Primary Care Physician Patient Instructions: Abdominal Pain, Adult ED Add. Discharge Instructions: CLEAR LIQUIDS--WATER, BROTH, JELLO, GATORADE BRATS DIET--BANANAS, RICE, APPLESAUCE, TOAST, SALTINES PUMP AND DUMP BREAST MILK FOLLOW UP WITH YOUR DR. IN THE NEXT FEW DAYS FOR FURTHER CARE, RETURN TO ER IF WORSE All discharge instructions reviewed with patient and/or family. Voiced un derstanding. Scripts Hyoscyamine Sulfate (Levsin-Sl) 0.125 Mg Tab.subl 0.25 MG SL Q4H, #15 TAB Prov: VANNESA CAIN DO 10/07/21 Ondansetron (Ondansetron Odt) 4 Mg Tab.rapdis 4 MG PO Q4H for Nausea/Vomiting, #10 TAB Prov: VANNESA CAIN DO 10/07/21 Pantoprazole Sodium (Protonix) 40 Mg Tablet.dr 40 MG PO DAILY, #15 TAB Prov: VANNESA CAIN DO 10/07/21 Ketorolac Tromethamine (Ketorolac Tromethamine) 10 Mg Tablet 10 MG PO Q6H for Pain, #15 TAB Prov: VANNESA CAIN DO 10/07/21 VANNESA CAIN DO Oct 07, 2021 05:37
[2021-10-07] MEDS ORDERED: PANT40TA2 PO (05:40)
[2021-10-07] MEDS ORDERED: ONDA4TAB11 PO (05:40)
[2021-10-07] MEDS ORDERED: KETO10TA PO (05:40)
[2021-10-07] MEDS ORDERED: HYOS0.1283 SL (05:40)
[2021-10-07] MEDS ORDERED: KETOROLAC 30 MG/ML VIAL IVP ONE (05:45)
[2021-10-07 06:13] VITALS: BP 105/64
--- NOTE | 2021-10-07 06:27 | Diagnostic Imaging Report ---
PROCEDURE: CT abdomen and pelvis with contrast, rule out appendicitis. TECHNIQUE: Multiple contiguous axial images were obtained through the abdomen and pelvis after the administration of intravenous contrast. All CT scans use one or more of the following dose optimizing techniques: automated exposure control, MA and/or KvP adjustment based on patient size and exam type or iterative reconstruction. INDICATION: Constipation off and on, right lower quadrant pain, ovarian cyst. EXAMINATION: CT of the abdomen and pelvis with contrast 10/07/2021 COMPARISON: 11/03/2019 FINDINGS: The appendix is normal without surrounding inflammatory change. No inflammation is seen about the remaining loops of bowel. There is no ascites or free air. The liver, spleen, gallbladder, pancreas, and adrenal glands appear unremarkable. There is a nonobstructive stone in the left kidney. No hydronephrosis on the left. On the right, the right ureter is distended along its entire course with no ureteral stones appreciated. The lung bases appear clear. There is no acute bony abnormality. IMPRESSION: 1. Mild right hydronephrosis nonspecific perhaps due to a recently passed stone; pyelonephritis should be clinically excluded. 2. Nonobstructive left renal stone. Pertinent findings agree with the preliminary report. Dictated by: Dictated on workstation # [id number]
== END 2021-10-07 06:13 | disposition home or self-care (01) ==
LOC: EDUNIT# 01:42 → ER 01:45
DX: R10.11 Right upper quadrant pain (principal); Z20.822 Contact with and (suspected) exposure to COVID-19
CPT/HCPCS: 36415; 74177; 80053; 81000; 82150; 83690; 84703; 85025; 87636

== ENCOUNTER → 2021-10-13 | Outpatient (CLI) | payer BC ==
[~2021-10-13] MED LIST changes: +CATHETER FLUSH 10 ML SYR IV PRN; +HYOS0.1283 SL; +KETO10TA PO; +ONDA4TAB11 PO; +PANT40TA2 PO
--- NOTE | 2021-10-13 10:04 | Diagnostic Imaging Report ---
INDICATION: Right upper quadrant pain. Patient was administered 5.2 mCi technetium 99m Choletec intravenously and imaging over the abdomen was performed. At 1 hour, patient ingested 8 ounces of Ensure and the gallbladder ejection fraction was calculated. The patient did complain of abdominal discomfort throughout the study. There is homogeneous uptake of activity by the liver with prompt excretion of activity into the gallbladder and common duct. There is normal passage of activity into the small bowel. Gallbladder ejection fraction is abnormally low at 20%. Normal values are 35% or greater. IMPRESSION: 1. Patent cystic duct and common bile duct. 2. Low gallbladder ejection fraction of 20%. Dictated by: Dictated on workstation # [id number]
== END ==
LOC: CARD 07:00
PROVIDERS: ATTEND Surgery
DX: R10.11 Right upper quadrant pain (principal)
CPT/HCPCS: 78227; A9537

== ENCOUNTER 2021-10-14 12:53 | Outpatient (CLI) | payer BC ==
[~2021-10-14] VITALS: Ht 160 cm; Wt 61.0 kg
[~2021-10-14 12:53] MED LIST changes: -CATHETER FLUSH 10 ML SYR IV PRN
== END 2021-10-14 18:08 | disposition home or self-care (01) ==
LOC: PREOP 12:53
PROVIDERS: ATTEND Surgery
DX: Z01.818 Encounter for other preprocedural examination (principal)

== ENCOUNTER 2021-10-20 06:04 | Outpatient (CLI) | payer BC | END 2021-10-20 18:05 | disposition home or self-care (01) | LOC: PREOP 06:04 | PROVIDERS: ATTEND Surgery | DX: Z01.818 Encounter for other preprocedural examination (principal) ==

== ENCOUNTER 2021-10-25 10:26 | Day surgery (SDC) | payer BC ==
[2021-10-25] VITALS (11 sets, daily range): BP systolic 91–119; BP diastolic 50–79
[~2021-10-25] VITALS: Ht 160 cm; Wt 56.4 kg
[2021-10-25] MEDS ORDERED: ceFAZolin INJECTION 1,000 MG ONE (10:43)
[2021-10-25] MEDS ORDERED: ceFAZolin 2 GM IV Premixed 50 ML IV ONE (10:45)
[2021-10-25] MEDS: LACTATED RINGERS 1,000 ML IV PRN ×2 (11:13→13:15)
[2021-10-25] MEDS ORDERED: LIDOCAINE/EPI 1%-1:200,000 (XYLOCAINE) 30 ML VIAL ONE (11:46)
[2021-10-25] MEDS ORDERED: ceFAZolin INJECTION 1,000 MG VIAL IV ONE (12:15)
--- NOTE | 2021-10-25 12:53 | Progress Note-Pre Operative ---
Pre-Operative Progress Note H&P Reviewed The H&P was reviewed, patient examined and no changes noted. Date Seen by Provider: Oct 25, 2021 Time Seen by Provider: 12:00 Date H&P Reviewed: Oct 25, 2021 Time H&P Reviewed: 12:00 Pre-Operative Diagnosis: sx biliary dyskinesia ARIANE LAI MD Oct 25, 2021 12:53
[2021-10-25] MEDS ORDERED: HYDR-3817 PO (12:55)
--- NOTE | 2021-10-25 12:55 | Discharge Inst-Surgical ---
D/C Lap Instructions-JOELLE New, Converted, or Re-Newed RX: RX on Chart Follow Up Appt in 2 weeks Activity as tolerated No driving for 24 hours No driving while on pain medications Incentive Spirometry use every 2 hours while awake Regular Diet Symptoms to Report: Fever over 101 degree F, Nausea/Vomiting Infection Signs and Symptoms to report: Increased redness, Foul odor of wound, Increased drainage Bathing instructions: May shower Operative Area Clean/Dry; Keep incision clean/dry If any problems/questions: Contact your physician or go to Emergency Room ARIANE LAI MD Oct 25, 2021 12:55
[2021-10-25] MEDS ORDERED: oxyCODONE/APAP 5/325MG (PERCOCET 5) TABLET PO PRN (13:00)
[2021-10-25] MEDS ORDERED: ACETAMINOPHEN 325 MG TABLET PO PRN (13:00)
[2021-10-25] MEDS ORDERED: ONDANSETRON 4 MG/2 ML (SDV) Z0FRAN IVP PRN (13:00)
[2021-10-25] MEDS ORDERED: morphine INJ 10 MG/ML 1ML (SYR OR VIAL) IVP PRN ×2 (13:00)
[2021-10-25] MEDS ORDERED: GLYCOPYRROLATE 0.2 MG/ML (ROBINUL) 2 ML VIAL ONE (13:02)
[2021-10-25] MEDS ORDERED: proPOfol 200 MG/20 ML (DIPRIVAN) VIAL IV ONE (13:02)
[2021-10-25] MEDS ORDERED: ONDANSETRON 4 MG/2 ML (SDV) Z0FRAN ONE ×3 (13:02→14:51)
[2021-10-25] MEDS ORDERED: MIDAZOLAM 2 MG/2 ML (VERSED) VIAL ONE (13:02)
[2021-10-25] MEDS ORDERED: NEOSTIGMINE 3 MG/3 ML VIAL ONE (13:02)
[2021-10-25] MEDS ORDERED: LIDOCAINE PF 2% 5 ML (XYLOCAINE) VIAL ONE (13:02)
[2021-10-25] MEDS ORDERED: fentaNYL INJ 100 MCG/2 ML AMP ONE ×2 (13:02→13:32)
[2021-10-25] MEDS ORDERED: ROCURONIUM 50 MG/5 ML (ZEMURON) VIAL IV ONE (13:03)
--- NOTE | 2021-10-25 13:39 | Progress Note-Post Operative ---
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
[2021-10-25] MEDS: ONDANSETRON 4 MG/2 ML (SDV) Z0FRAN IVP PRN ×2 (13:59→14:49)
[2021-10-25] MEDS ORDERED: SEVOFLURANE (ULTANE) 15 ML INHAL SOLN ONE ×2 (13:59→14:00)
[2021-10-25] MEDS ORDERED: HYDROmorphone 2 MG/ML VIAL (DILAUDID) IV ONE (14:00)
[2021-10-25] MEDS ORDERED: morphine INJ 10 MG/ML 1ML (SYR OR VIAL) IVP ONE (14:00)
[2021-10-25] MEDS ORDERED: oxyCODONE/APAP 5/325MG (PERCOCET 5) TABLET ONE (15:36)
--- NOTE | 2021-10-25 20:00 | OPERATIVE REPORT ---
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 PREOPERATIVE DIAGNOSIS: Symptomatic biliary dyskinesia. 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 PROCEDURE PERFORMED: Laparoscopic cholecystectomy. SURGEON: Ariane Lai MD. COMBINATION MACHINE TENDER: Eddi Harris APRN. ANESTHESIA: General endotracheal. ESTIMATED BLOOD LOSS: Minimal. FINDINGS: Distended gallbladder and no gallbladder wall thickening. DISPOSITION: The patient tolerated the procedure well. INDICATIONS FOR PROCEDURE: The patient is a 26-year-old female, who has had issues with right upper abdominal quadrant pain with associated nausea and vomiting, which initially started during gestation approximately a year and half ago. She reports that during gestation, she would have episodes of pain in the right upper abdominal quadrant and would also have intermittent episodes of nausea and vomiting after eating a meal. Since then, 10 months ; however, she states that she has had worsening episodes of pain in the right upper abdominal quadrant as well as nausea, intermittent vomiting as well as feeling of fullness with small amounts of fluid as well as bloating. She has tried conservative medical management; however, continues to have these symptoms. DESCRIPTION OF PROCEDURE: The patient was brought to the operating room and laid supine on the table. After adequate IV pain and sedative medications and general endotracheal intubation, the abdomen was prepped and draped in a standard surgical fashion. A 0.5% Marcaine with epinephrine was then used to anesthetize the overlying skin in the left upper abdominal quadrant and transverse skin incision was made using a 15 blade. A 0 silk suture was applied to the medial aspect of the incision for retraction and a Veress needle was inserted with a low opening pressure of 0 mmHg. The abdomen was insufflated to 15 mmHg pressure. Veress needle was removed and a 5 mm XL trocar placed followed by a 5 mm 45-degree angle laparoscope visualizing the peritoneal cavity. A four-quadrant abdominal exploration was performed. There was a distended gallbladder, no gallbladder wall thickening. Under direct visualization, we then proceed to place a supraumbilical 10 mm port after the skin and peritoneal lining were anesthetized using 0.5% Marcaine with epinephrine and a transverse skin incision was made using 15 blade. In a similar manner, a right upper abdominal quadrant 5 mm port was placed. The patient was then placed in a reverse Trendelenburg position as well as plane right side up, left side down. Fundus of the gallbladder was then retracted anteriorly and superiorly and the hepatoduodenal ligament was then dissected opened using a blunt dissection as well as electrocautery on a hook instrument as well as the [place] dissector. The entire critical view of safety was identified including the triangle of Calot as well as the cystic duct and artery as only two structures going into the gallbladder as well as the cystic plate behind the proximal gallbladder. A timeout was then taken and the cystic duct and artery were then clipped proximally and distally and cut with EndoShears. The gallbladder was then dissected off the liver bed using electrocautery with visualization of good hemostasis as well as no leaking ducts of Luschka. The gallbladder was then removed through the 10 mm port site using an EndoCatch bag. The 10 mm port site fascia and peritoneum were then closed under direct visualization using a Corey-Swathi device and 0 Vicryl suture. The abdomen was then desufflated and the remaining ports removed. All skin incisions were closed using 4-0 Monocryl running subcuticular sutures. Wounds were then cleaned and covered with Dermabond. The patient tolerated the procedure well. We will start IV normal pain medication as well as a clear liquid diet. When she is tolerating clears, has good pain control with oral pain medications, and is ambulating well, we will discharge her home, where she will be instructed to do no heavy lifting or exertion for the next two weeks. Job ID: [id number] DocumentID: [id number] Dictated Date: 10/25/2021 13:45:25 Refrigeration Service Technician Date: 10/25/2021 19:59:33 Dictated By: ARIANE LAI MD
--- NOTE | 2021-10-28 11:53 | Anesthesia-General Post-Op ---
General Patient Condition Mental Status/LOC: Same as Preop Cardiovascular: Satisfactory Nausea/Vomiting: Absent Respiratory: Satisfactory Pain: Controlled Complications: Absent Post Op Complications Complications None Follow Up Care/Instructions Patient Instructions None needed. Anesthesia/Patient Condition Patient Condition Post-dated progress note: Patient was seen on 10-25 at approximately 1430 in PACU and she was doing well, no complaints, stable vital signs, no apparent adverse anesthesia problems. GALILEA DASILVA DO Oct 28, 2021 11:53
== END 2021-10-25 16:40 | disposition home or self-care (01) ==
LOC: SDC 10:26
PROVIDERS: ATTEND Surgery
DX: K80.10 Calculus of gallbladder with chronic cholecystitis without obstruction (principal); K82.8 Other specified diseases of gallbladder; K21.9 Gastro-esophageal reflux disease without esophagitis; Z79.899 Other long term (current) drug therapy; Z83.3 Family history of diabetes mellitus; Z80.1 Family history of malignant neoplasm of trachea, bronchus and lung; Z82.49 Family history of ischemic heart disease and other diseases of the circulatory system
CPT/HCPCS: 84703; 87081; 88304